=== PATIENT | female | born 1930 | race Caucasian/White ===

== ENCOUNTER 2016-06-12 00:40 | Inpatient (IN) | payer OTHER ==
[2016-06-12] VITALS (59 sets, daily range): BP systolic 82–143; BP diastolic 42–78
[~2016-06-12] VITALS: Ht 162.6 cm; Wt 88.0 kg
[~2016-06-12 00:40] MED LIST: ASPI-869 PO; DILT30TA35 PO
--- NOTE | 2016-06-12 00:45 | NUR ---
PT BIB RA WITH A C/O SOB. PT ARRIVED ON NRB MASK AND IS TRIPODING. PT IS LEANING TO THE RT. PT APPARENTLY FELL OUT OF BED. PT APPEARS TO BE CONFUSED. O2 SAT IS 87 ON RA AND DROPPING. PT WAS PLACED ON NC AT 4L AND O2 SAT DROPPED. PT PLACED BACK ON NRB MASK AND SLOWING SATURATED AT 96%. PT IS ON THE MONITOR AND CONTINOUS PULSE OX. PT IS CYANOTIC AROUND THE MOUTH UPON ARRIVAL. PT'S CAP REFILL IS SLUGGISH >3 SEC. PT KEEPS HER HEAD DOWN.
[2016-06-12] MEDS ORDERED: methylPREDNISolone SOD SUCC 125 MG/2ML VIAL ONE (00:53)
[2016-06-12] MEDS ORDERED: ALBUTEROL FS 2.5 MG/3 ML VIAL.NEB NEB ONE (01:00)
[2016-06-12] MEDS ORDERED: IPRATROPIUM NEB FS 0.5 MG/2.5 ML AMPUL.NEB NEB ONE (01:00)
[2016-06-12] MEDS ORDERED: methylPREDNISolone SOD SUCC 125 MG/2ML VIAL IV ONE (01:00)
[2016-06-12] MEDS ORDERED: FURO20TA4 PO (01:03)
[2016-06-12] MEDS ORDERED: METO25TA6 PO (01:03)
[2016-06-12] MEDS ORDERED: LOSA50TA21 PO (01:03)
[2016-06-12] MEDS ORDERED: WARF5TAB6 PO (01:03)
[2016-06-12] MEDS ORDERED: SULF1TAB48 PO (01:03)
[2016-06-12] MEDS ORDERED: DILT240C88 PO (01:03)
[2016-06-12] MEDS ORDERED: LEVO112T5 PO (01:03)
[2016-06-12 01:08] LABS: BASOPHILS # (AUTO) 0.1 /CMM (0.0-0.2); BASOPHILS % (AUTO) 0.6 % (0.0-2.0); HEMATOCRIT 45 % (33-45); HEMOGLOBIN 14.5 g/dL (11.5-14.8); LYMPHOCYTES # (AUTO) 0.6 /CMM (0.8-4.8); LYMPHOCYTES % (AUTO) 6.1 % (20.0-44.0); MEAN CORPUSCULAR HEMOGLOBIN 34 PG (26.0-33.0); MEAN CORPUSCULAR HGB CONC 32 g/dl (31.0-36.0); MEAN CORPUSCULAR VOLUME 104 fL (82-100); MONOCYTES # (AUTO) 0.7 /CMM (0.1-1.30); MONOCYTES % (AUTO) 7.1 % (2.0-12.0); NEUTROPHILS # (AUTO) 8.7 /CMM (1.8-8.9); NEUTROPHILS % (AUTO) 86.2 % (43.0-81.0); PLATELET COUNT (AUTO) 217 /CMM (150-450); RDW COEFFICIENT OF VARIATION 14.1 (11.5-15.0); RED BLOOD CELL COUNT(AUTO) 4.31 MIL/uL (4.0-5.2); WHITE BLOOD COUNT (AUTO) 10.1 K/uL (4.3-11.0)
[2016-06-12 01:09] LABS: ABG BASE EXCESS 0.1 mmol/L; ABG OXYGEN SATURATION 97.3 % (92.0-98.5); ABG PCO2 99.2 mmHg (35.0-45.0); ABG PH 7.137 (7.350-7.450); ABG PO2 132.4 mmHg (75.0-100.0); ABG TOTAL HEMOGLOBIN 15.4 G/dL (12.0-16.0); AaDO2 333.8 mmHg; COHb 1.2 % (0.5-1.5); MetHb 0.8 % (0.0-1.5); O2Hb 95.4 % (94.0-97.0); SITE, ABG Left Radial; VENT MODE, BG nrb
[2016-06-12] MEDS ORDERED: IV SET PRIMARY 1 EA INFUS.SET MC ONE (01:11)
[2016-06-12] MEDS ORDERED: IV SET PRIMARY PUMP SET 1 EA INFUS.SET MC ONE ×5 (01:11→22:29)
[2016-06-12] MEDS ORDERED: IV NS 0.9% 1,000 ML ONE ×2 (01:11→02:01)
[2016-06-12] MEDS ORDERED: PROPOFOL 100 ML IV ONE (01:11)
--- NOTE | 2016-06-12 01:19 | NUR ---
TIME OUT DONE BY DR. MCNULTY.
--- NOTE | 2016-06-12 01:20 | NUR ---
BAGGING IN PROGRESS BY RT
--- NOTE | 2016-06-12 01:20 | NUR ---
PT REC'D 20MG ETOMIDATE AND 200MG SUCC IVP
[2016-06-12 01:21] LABS: CALCIUM, SERUM 9.1 mg/dL (8.5-10.1); CREATININE 1.3 mg/dL (0.6-1.3)
[2016-06-12 01:22] LABS: LACTIC ACID 1.5 mmol/L (0.4-2.0); POTASSIUM 5.8 mmol/L (3.5-5.1)
--- NOTE | 2016-06-12 01:22 | NUR ---
PT INTUBATED. 7.5 ETT AND 22 @ THE LIP.
--- NOTE | 2016-06-12 01:23 | NUR ---
DR. ANDRES DID NOT WANT CARDIOVERSION WHEN ASKED.
--- NOTE | 2016-06-12 01:23 | NUR ---
PT IS IN AFIB. PT WAS DEFIBRILLATED AT 200J PER DR. MCNULTY.
--- NOTE | 2016-06-12 01:23 | NUR ---
BAGGING IN PROGRESS BY RT
--- NOTE | 2016-06-12 01:23 | NUR ---
PROPOFOL HELD PT IS HYPOTENSIVE
[2016-06-12 01:30] LABS: TROPONIN I 0.035 ng/mL (0.00-0.056)
[2016-06-12] MEDS ORDERED: SUCCINYLCHOLINE CHLORIDE 20 MG/ML VIAL IV ONE ×2 (01:30→08:00)
[2016-06-12] MEDS ORDERED: ETOMIDATE 2 MG/ML VIAL IV ONE ×2 (01:30→08:00)
[2016-06-12] MEDS ORDERED: LEVOFLOXACIN 750 MG /D5W 150ML PIGGYBACK IV ONE (01:30)
[2016-06-12] MEDS ORDERED: PROPOFOL 100 ML IV PRN (01:30)
[2016-06-12] MEDS ORDERED: IV NS 0.9% 1,000 ML BAG IV ONE ×2 (01:30→02:30)
--- NOTE | 2016-06-12 01:30 | NUR ---
LOONEY CATH INSERTED. APPROX 50 ML YELLOW URINE OUTPUT NOTED.
[2016-06-12 01:31] LABS: BILIRUBIN,DIRECT 0.1 mg/dL (0.0-0.2); BILIRUBIN,TOTAL 0.7 mg/dL (0.2-1.0)
[2016-06-12 01:32] LABS: ALBUMIN 3.6 g/dL (3.4-5.0); TOTAL PROTEIN, SERUM 7.6 g/dL (6.4-8.2)
[2016-06-12] MEDS ORDERED: IOHEXOL 240MG/ML 50 ML IV ONE (01:35)
[2016-06-12] MEDS ORDERED: IV NS 0.9% 250 ML IV ONE ×2 (01:35→19:27)
--- NOTE | 2016-06-12 01:38 | NUR ---
UNABLE TO INSERT NGT OR OG TUBE. AWARE.
[2016-06-12] MEDS ORDERED: FENTANYL PF 100MCG/2ML AMPUL ONE ×3 (01:46→04:21)
--- NOTE | 2016-06-12 01:46 | NUR ---
PT FIGHTING ETT. DR. MCNULTY IS AWARE AND NEW ORDERS GIVEN.
[2016-06-12] MEDS ORDERED: FENTANYL PF 100MCG/2ML AMPUL IV ONE ×2 (02:00→03:00)
--- NOTE | 2016-06-12 02:28 | NUR ---
PT LEFT FOR CT WITH RT, EMT AND MYSELF. PT IS ON THE MONITOR AND CONTINUOUS PULSE OX. PT REC'D MEDICATION ORDERED. BY DR. ANDRES.
--- NOTE | 2016-06-12 02:36 | NUR ---
PT IS IN CT.
--- NOTE | 2016-06-12 02:38 | NUR ---
CT WITH CONTRAST IN PROGRESS.
[2016-06-12] MEDS ORDERED: LEVOFLOXACIN 750 MG /D5W 150ML 150 ML IV ONE (03:05)
--- NOTE | 2016-06-12 03:13 | NUR ---
REPEAT ABG IN PROGRESS AT THE BEDSIDE.
[2016-06-12 03:17] LABS: ABG BASE EXCESS 0.9 mmol/L; ABG OXYGEN SATURATION 98.4 % (92.0-98.5); ABG PCO2 36.9 mmHg (35.0-45.0); ABG PH 7.444 (7.350-7.450); ABG PO2 131.2 mmHg (75.0-100.0); ABG TOTAL HEMOGLOBIN 13.5 G/dL (12.0-16.0); COHb 0.9 % (0.5-1.5); MetHb 0.4 % (0.0-1.5); O2Hb 97.1 % (94.0-97.0); PEEP,BG 0 cm H2O; SITE, ABG Right Radial; VENT MODE, BG AC 24 450 60% +0; VT, ABG 450 mL
--- NOTE | 2016-06-12 03:21 | NUR ---
RR DECREASED TO 20 POST ABG RESULTS ON VERBAL ORDER FROM DR MCNULTY Addendum: 06/12/16 at 0322 by KATYA FUNES RT Amended: Links added.
--- NOTE | 2016-06-12 03:21 | NUR ---
RT CHANGED THE RT ON THE VENT TO 20.
--- NOTE | 2016-06-12 03:49 | NUR ---
REPORT GIVEN TO TAO HYLTON
[2016-06-12] MEDS ORDERED: IV D5W 0 ML IV ONE (03:56)
[2016-06-12] MEDS ORDERED: AZITHROMYCIN 500 MG VIAL ONE (03:56)
[2016-06-12] MEDS ORDERED: IV D5W 250 ML IV ONE (03:59)
[2016-06-12] MEDS ORDERED: AZITHROMYCIN 500 MG in IV D5W 250 ML IV ONE (04:00)
[2016-06-12 04:17] LABS: APPEARANCE,URINE SL CLOUDY (CLEAR); BILIRUBIN,URINE 1+ (NEGATIVE); BLOOD, URINE 2+ Ery/uL (NEGATIVE); COLOR,URINE YELLOW (YELLOW); KETONES,URINE NEGATIVE (NEGATIVE); LEUKOCYTE ESTERASE ,URINE NEGATIVE (NEGATIVE); NITRITE, URINE NEGATIVE (NEGATIVE); PROTEIN,URINE 2+ mg/dl (NEGATIVE); UGLUCOSE NEGATIVE (NEGATIVE)
--- NOTE | 2016-06-12 04:18 | NUR ---
PROPOFOL HELD. PT'S HYPOTENSIVE. MD IS AWARE.
[2016-06-12] MEDS ORDERED: FENTANYL PF 100MCG/2ML AMPUL IV STA (04:25)
[2016-06-12 04:26] LABS: ADD URINE CULTURE NO; BACTERIA,URINE None seen /HPF (None Seen); HYALINE CASTS, URINE Few /LPF (None Seen); MUCUS,URINE Many /LPF (None Seen); SQUAMOUS EPITHELIAL CELL,UR Moderate /HPF (None Seen)
[2016-06-12] MEDS ORDERED: ACETAMINOPHEN 325 MG TABLET PO PRN (04:30)
[2016-06-12] MEDS ORDERED: ONDANSETRON HCL/PF 4 MG/2 ML VIAL IVP PRN (04:30)
[2016-06-12] MEDS ORDERED: ZOLPIDEM TARTRATE 5 MG TABLET PO PRN (04:30)
[2016-06-12] MEDS ORDERED: HYDROCODONE/APAP 5/325MG 1 EACH TABLET PO PRN (04:30)
[2016-06-12] MEDS ORDERED: MAGNESIUM HYDROXIDE 30 ML UDC PO PRN (04:30)
[2016-06-12] MEDS ORDERED: BUMETANIDE INJ 1 MG in IV NS 0.9% 40 ML IV ONE (04:30)
[2016-06-12] MEDS ORDERED: Z GUARD REMEDY 2 OZ OINT TP PRN (04:30)
[2016-06-12] MEDS: AZITHROMYCIN 500 MG in IV D5W 250 ML IV SCH (04:30)
[2016-06-12] MEDS ORDERED: MAG HYDROX/AL HYDROX/SIMETH 30 ML UDC PO PRN (04:30)
--- NOTE | 2016-06-12 04:30 | NUR ---
REC'D PT. VIA GISELL FROM [facility]. VERBAL REPORT GIVEN BY SARAH Salazar PT.IS VENTED & SEDATED ON DIPRIVAN GTT. AT 5 MCG/ KG MIN. PT. WAS GIVEN A BEDBATH UPON ADM. DOCUMENTATION DONE. LOONEY CATH TO GRAVITY. SKIN INTACT. THERE IS A GOLD WEDDING BAND ON LEFT HAND. ALL PULSES PALPABLE X 4 EXT./WEAK. AFEBRILE. BILAT.FEET ARE CYANOTIC & COOL TO TOUCH. PT.HAS BILAT. SOFT WRIST RESTRAINTS ON PER SAFETY PROTOCOL. EDEMATOUS BILAT. FEET. HEART MONITOR SHOWS SB/50'S & SBP'S IN THE LOW 90'S/89. CONT. POC.
--- NOTE | 2016-06-12 04:30 | NUR ---
PT TRANSPORTED TO ICU VIA GURNEY PER PROTOCOL.
[2016-06-12] MEDS: PROPOFOL 100 ML IV PRN ×3 (04:49→23:07)
[2016-06-12] MEDS ORDERED: BUMETANIDE INJ 0.25 MG/ML VIAL ONE (04:54)
[2016-06-12] MEDS ORDERED: IV NS 0.9% 50 ML IV ONE (04:55)
[2016-06-12] MEDS ORDERED: PANTOPRAZOLE 40 MG TABLET.DR PO SCH (07:30)
[2016-06-12 07:34] LABS: BASOPHILS % (AUTO) 0.1 % (0.0-2.0); HEMATOCRIT 41 % (33-45); HEMOGLOBIN 13.6 g/dL (11.5-14.8); LYMPHOCYTES # (AUTO) 0.4 /CMM (0.8-4.8); LYMPHOCYTES % (AUTO) 3.5 % (20.0-44.0); MEAN CORPUSCULAR HEMOGLOBIN 34 PG (26.0-33.0); MEAN CORPUSCULAR HGB CONC 33 g/dl (31.0-36.0); MEAN CORPUSCULAR VOLUME 102 fL (82-100); MONOCYTES # (AUTO) 0.3 /CMM (0.1-1.30); MONOCYTES % (AUTO) 3.3 % (2.0-12.0); NEUTROPHILS # (AUTO) 9.7 /CMM (1.8-8.9); NEUTROPHILS % (AUTO) 93.1 % (43.0-81.0); PLATELET COUNT (AUTO) 175 /CMM (150-450); RDW COEFFICIENT OF VARIATION 14.3 (11.5-15.0); RED BLOOD CELL COUNT(AUTO) 4.03 MIL/uL (4.0-5.2); WHITE BLOOD COUNT (AUTO) 10.4 K/uL (4.3-11.0)
[2016-06-12] MEDS ORDERED: ALBUTEROL FS 2.5 MG/3 ML VIAL.NEB NEB SCH (07:35)
[2016-06-12] MEDS: IPRATROPIUM NEB FS 0.5 MG/2.5 ML AMPUL.NEB NEB SCH ×5 (07:35→23:26)
[2016-06-12 07:39] LABS: ALBUMIN 2.9 g/dL (3.4-5.0); CALCIUM, SERUM 8.2 mg/dL (8.5-10.1); CREATININE 1.3 mg/dL (0.6-1.3); POTASSIUM 4.7 mmol/L (3.5-5.1); TOTAL PROTEIN, SERUM 6.2 g/dL (6.4-8.2)
--- NOTE | 2016-06-12 07:55 | NUR ---
PT RECEIVED ON [facility] VENT SETTINGS ORDERED. PT ORALLY INTUBATED ET-TUBE SECURED AT 25CM. B/S EQUAL. ALARMS SET AND AUDIBLE SMALL PALE YELLOW SPUTUM. AMBUBAG AT HEAD OF BED. Addendum: 06/12/16 at 1253 by ALBERTO CRSYTAL RT Amended: Links added.
--- NOTE | 2016-06-12 08:00 | NUR ---
ICU/RN INITIAL NOTES,AM RECEIVED REPORT FROM NIGHT NURSE. PT INTUBATED ETT 7.5 22 AT THE LIP. PT ON VENT SETTINGS ORDERED BY MD, NO ACUTE DISTRESS NOTED AT THIS TIME. PT SEDATED WITH DIPRIVAN, STILL ABLE TO OPEN EYES AND FOLLOW COMMANDS. PT ON TELE, SINUS WITH OCCASIONAL PVC'S. NO NG/OG TUBE IN PLACE, PER MD, WE ARE NOT TO PUT ONE IN. PIV PATENT AND INTACT, NO S/S OF INFECTION OR INFILTRATION NOTED. SKIN INTACT, PT WILL BE TURNED AND REPOSITIONED Q 2 HOURS AND NEEDED. ALL NEEDS WILL BE MET, SAFETY MEASURES TAKEN, BED IN LOW POSITION, SIDE RAILS UP,CALL LIGHT WITHIN REACH. BILATERAL WRIST RESTRAINTS IN PLACE, CIRCULATION CHECKS DONE PER PROTOCOL.
[2016-06-12] MEDS ORDERED: IV NS 0.9% 1,000 ML IV PRN (08:21)
[2016-06-12] MEDS ORDERED: AMIODARONE 900 MG in IV D5W 500 ML IV PRN (08:30)
--- NOTE | 2016-06-12 08:43 | NUR ---
WOUND CARE CONSULT: PT PRESENTS INTUBATED WITH INTACT SKIN. PT ON STU COMFORT GEL MATTRESS. PT TO BE TURNED AND REPOSITIONED EVERY 2 HRS PT CONDITION PERMITS, HEELS FLOATED. PT NOTED TO HAVE 4+ PITTING EDEMA TO BILATERAL FEET AND ANKLES WITH DUSKY COLOR. WILFRED SCORE IS 13. PT MOVES HER FEET AND LEGS AT TIMES. ALL SKIN PROTECTION MEASURES IN PLACE AND DISCUSSED WITH NURSING STAFF. MD IN AGREEMENT WITH PLAN OF CARE.
[2016-06-12 08:56] LABS: PROTHROMBIN TIME 68.3 SECS (9.5-12.7)
[2016-06-12] MEDS ORDERED: AMIODARONE 150 MG in IV D5W 100 ML IV ONE (09:00)
[2016-06-12] MEDS ORDERED: ENOXAPARIN SODIUM 30 MG/0.3 ML DISP.SYRIN SQ SCH (09:00)
--- NOTE | 2016-06-12 09:00 | NUR ---
ICU/RN: PT SEEN AND ASSESSED BY WOUND NURSE. NO INDICATION FOR LOW AIR LOSS MATTRESS AT THIS TIME PER WOUND RN. WILL CONTINUE TO TURN AND REPOSITION, CLOSELY ASSESS AND FOLLOW SKIN CARE PROTOCOL
[2016-06-12 09:09] LABS: INR 5.71 (0.87-1.13)
[2016-06-12] MEDS: PANTOPRAZOLE 40 MG VIAL IV SCH (09:18)
[2016-06-12] MEDS: methylPREDNISolone SOD SUCC 125 MG/2ML VIAL IV SCH (09:19)
[2016-06-12] MEDS: AMIODARONE 900 MG in IV D5W 482 ML IV PRN (09:40)
[2016-06-12] MEDS: IV NS 0.9% 1,000 ML IV PRN (09:41)
[2016-06-12 09:49] LABS: MAGNESIUM 1.9 mg/dL (1.8-2.4); PHOSPHORUS 2.3 mg/dL (2.5-4.9)
[2016-06-12 09:52] LABS: TROPONIN I 0.038 ng/mL (0.00-0.056)
[2016-06-12 09:59] LABS: THYROID STIMULATING HORMONE 2.5 uIU/mL (0.358-3.74)
[2016-06-12] MEDS: ALBUTEROL FS 2.5 MG/3 ML VIAL.NEB NEB SCH ×4 (11:50→23:26)
[2016-06-12] MEDS ORDERED: Sodium Phosphate 15 MMOL in IV D5W 250 ML IV ONE (13:30)
--- NOTE | 2016-06-12 15:00 | NUR ---
ICU/RN: PT SEEN BY GI MD. POSSIBLE EGD IN AM IF ABLE TO CORRECT INR AND AFTER EVALUATES PT.AND GIVES ORDERS. WILL FOLLOW THROUGH.
[2016-06-12] MEDS ORDERED: SECONDARY IV SET 1 EA INFUS.SET MC ONE (15:06)
--- NOTE | 2016-06-12 18:25 | NUR ---
ICU/RN ENDING NOTES,AM REPORT WILL BE ENDORSED TO NIGHT NURSE FOR CONTINUATION OF CARE. PT ON VENT SETTINGS ORDERED BY MD, NO ACUTE DISTRESS NOTED AT THIS TIME. PT CONTINUES TO BE ON AMIO DRIP PER PROTOCOL, DIPRIVAN INFUSING AT 15MCG FOR SEDATION. ON TELE, SINUS. AWAITING OR FFP TO BE PREPARED TO ADMIN TO PT, CONSENT IN CHART. WILL REEVALUATE INR AT 2100. ALL NEEDS MET. SAFETY MEASURES TAKEN, BED IN LOW POSITION, SIDE RAILS UP, CALL LIGHT WITHIN REACH. BILATERAL WRIST RESTRAINTS IN PLACE, CIRCULATION CHECKED PER PROTOCOL.
[2016-06-12] MEDS ORDERED: BLOOD IV SET 1 EA INFUS.SET MC ONE (19:26)
--- NOTE | 2016-06-12 19:48 | NUR ---
ICU/RN RECEIVED PT AWAKE ALERT,OX3.ON VENT VIA ORAL ETT FI02 40%,SAT.96%.ON DIPRIVAN DRIP AT 15MCG/KG/MIN.FOLLOWS COMMANDS.AMIODARONE DRIP AT 0.5MG/MIN.MONITOR SHOWS NSR RATE OF 70/MIN.DENIES PAIN OR DISCOMFORT.ANGIO#20 INSERTED W/OUT DIFFICULTY BY CN RN VIA RT.HAND.
--- NOTE | 2016-06-12 20:46 | NUR ---
ICU/RN I UNIT FFP HUNG.VS TAKEN
[2016-06-12 21:15] LABS: CREATININE, URINE < 13.0 MG/DL (30.0-125.0); URINE SODIUM, RANDOM 40 mmol/l (40-220)
[2016-06-12 21:25] LABS: OSMOLALITY,URINE 201 mOS/kg (340-1090)
--- NOTE | 2016-06-12 21:45 | NUR ---
ICU/RN DR.SAM ECHAVARRIA HERE TO SEE PT.EXPLAINED TO PT,RE:CONDITION OF PT.AND PLAN OF CARE.
--- NOTE | 2016-06-12 21:56 | NUR ---
PT RECEIVED INTUBATED WITH 7.5 ETT SECURED AT 23CM AT THE LIP NO DISTRESS NOTED PT IS AWAKE. PT TOLERATING VENT SETTINGS. B/S ANABELLA DM. SX'D FOR SML AMT OF PALE SECRETIONS. VENT ALARMS SET AND AUDIBLE. AMBU BAG AT [facility]. VENT PLUGGED INTO RED OUTLET. WILL CONTINUE TO MONITOR. Addendum: 06/12/16 at 2159 by VITO ZHANG RT Amended: Links added.
--- NOTE | 2016-06-12 22:21 | NUR ---
ICU/RN. DR SILVA CALLED TO INQUIRE RE:RESULT OF 2100 PT W/ INR.INFORMED M.D. THAT PT. IS STILL RECEIVING I UNIT FFP THAT WAS ORDERED AT 1400.ORDERS RECEIVED.PT TO RECEIVE 2 MORE UNITS OF FFP PRIOR TO CHECKING PT W/ INR.ORDER CARRIED OUT.
--- NOTE | 2016-06-12 23:00 | NUR ---
ICU/RN CARDIOSCOPE SHOWS A-FIB RATE OF 155-160.PT AWAKE ALERT AND SOMEWHAT AGITATED.DIPRIVAN DRIP INCREASED TO 30MCG/KG/MIN.CALMED W/IN 3MIN.CALL PLACED TO DR MON AT 231I PT REMAINS IN A-FIB RATE OF 155/MIN.MD RETURNED CALL RIGHT AWAY.CONDITION REPORT GIVEN,NO ORDERS RECEIVED.
[2016-06-13] VITALS (66 sets, daily range): BP systolic 75–150; BP diastolic 30–85
--- NOTE | 2016-06-13 | NUR ---
ICU/RN DR NG NOTIFIED OF PT'S HR OF 155-160 IN A-FIB, NO ORDERS GIVEN
[2016-06-13] MEDS ORDERED: BLOOD IV SET 1 EA INFUS.SET MC ONE (01:34)
[2016-06-13] MEDS ORDERED: IV NS 0.9% 250 ML IV ONE (02:00)
[2016-06-13] MEDS: IPRATROPIUM NEB FS 0.5 MG/2.5 ML AMPUL.NEB NEB SCH ×6 (03:02→23:03)
[2016-06-13] MEDS: ALBUTEROL FS 2.5 MG/3 ML VIAL.NEB NEB SCH ×6 (03:03→23:03)
--- NOTE | 2016-06-13 03:15 | NUR ---
ICU/RN REMAINS IN A-FIB W/RVR.ON AMIODARONE DRIP AT 0.5MG/MIN.ON 3RD UNIT OF FFP.
[2016-06-13] MEDS: AZITHROMYCIN 500 MG in IV D5W 250 ML IV SCH (04:35)
[2016-06-13 05:27] LABS: BASOPHILS % (AUTO) 0.2 % (0.0-2.0); HEMATOCRIT 38 % (33-45); HEMOGLOBIN 12.7 g/dL (11.5-14.8); INR 1.99 (0.87-1.13); LYMPHOCYTES # (AUTO) 0.2 /CMM (0.8-4.8); LYMPHOCYTES % (AUTO) 1.7 % (20.0-44.0); MEAN CORPUSCULAR HEMOGLOBIN 34 PG (26.0-33.0); MEAN CORPUSCULAR HGB CONC 33 g/dl (31.0-36.0); MEAN CORPUSCULAR VOLUME 102 fL (82-100); MONOCYTES # (AUTO) 0.8 /CMM (0.1-1.30); MONOCYTES % (AUTO) 6.7 % (2.0-12.0); NEUTROPHILS # (AUTO) 11.5 /CMM (1.8-8.9); NEUTROPHILS % (AUTO) 91.4 % (43.0-81.0); PLATELET COUNT (AUTO) 177 /CMM (150-450); PROTHROMBIN TIME 22.3 SECS (9.5-12.7); RDW COEFFICIENT OF VARIATION 14.3 (11.5-15.0); RED BLOOD CELL COUNT(AUTO) 3.72 MIL/uL (4.0-5.2); WHITE BLOOD COUNT (AUTO) 12.6 K/uL (4.3-11.0)
[2016-06-13 05:33] LABS: CALCIUM, SERUM 8.6 mg/dL (8.5-10.1); CREATININE 1.4 mg/dL (0.6-1.3); MAGNESIUM 1.7 mg/dL (1.8-2.4); PHOSPHORUS 3.9 mg/dL (2.5-4.9); POTASSIUM 3.6 mmol/L (3.5-5.1)
[2016-06-13 05:35] LABS: TROPONIN I 0.095 ng/mL (0.00-0.056)
[2016-06-13] MEDS: PROPOFOL 100 ML IV PRN ×4 (05:59→20:41)
--- NOTE | 2016-06-13 06:00 | NUR ---
ICU/RN BERENICE TSANG IN TO SEE PT.PT REMAINS IN A-FIB W/RVR RATE 140'S.AT 0611 DR NG CARDIOVERTED PT AT 200 JOULES W/ CONVERSION TO NSR.12 LEAD EKG DONE PRIOR TO ABOVE PROCEDURE,AND DIPRIVAN INCREASED TO 30 MCG/KG/MIN PT WAS AWAKE.DIPRIVAN DECREASED TO 20MCG/KG/MIN AFTER 10MINUTES.
[2016-06-13] MEDS ORDERED: DIGOXIN INJ 0.5 MG/2 ML AMPUL ONE (06:20)
[2016-06-13] MEDS ORDERED: Magnesium 1GM/D5W 100ML PREMIX 100 ML IV ONE (06:24)
[2016-06-13] MEDS ORDERED: IV SET PRIMARY PUMP SET 1 EA INFUS.SET MC ONE ×3 (06:24→19:18)
[2016-06-13] MEDS: Magnesium 1GM/D5W 100ML PREMIX 100 ML IV SCH ×2 (06:29→07:44)
[2016-06-13] MEDS: DIGOXIN INJ 0.5 MG/2 ML AMPUL IV SCH ×3 (06:33→17:26)
--- NOTE | 2016-06-13 06:33 | NUR ---
ICU/RN. PT.REMAINS IN NSR.DIGOXIN 0.25IVP GIVEN ORDERED BY ,PT TO RECEIVE 2MORE DOSES Q6HRS. AND 2GMS OF MAGNESIUM SULFATE IVPB.
[2016-06-13] MEDS: LEVOTHYROXINE SODIUM 112 MCG TABLET PO SCH (07:45)
--- NOTE | 2016-06-13 07:49 | NUR ---
ICU/RN INITIAL NOTES,AM RECEIVED REPORT FROM NIGHT NURSE. PT INTUBATED ETT 7.5 22 AT THE LIP. PT ON VENT SETTINGS ORDERED BY MD, NO ACUTE DISTRESS NOTED AT THIS TIME. PT SEDATED WITH DIPRIVAN 20 MCG. PT ON TELE, SINUS. NO NG/OG TUBE IN PLACE, PER MD, WE ARE NOT TO PUT ONE IN. PT WILL POSSIBLY GO FOR EGD THIS AFTERNOON. PIV PATENT AND INTACT, NO S/S OF INFECTION OR INFILTRATION NOTED. SKIN INTACT, PT WILL BE TURNED AND REPOSITIONED Q 2 HOURS AND NEEDED. ALL NEEDS WILL BE MET, SAFETY MEASURES TAKEN, BED IN LOW POSITION, SIDE RAILS UP,CALL LIGHT WITHIN REACH. BILATERAL WRIST RESTRAINTS IN PLACE, CIRCULATION CHECKS DONE PER PROTOCOL. PER MD, ONE ADDITIONAL FFP WILL BE INFUSED THIS AM. WILL CONTINUE CARE
--- NOTE | 2016-06-13 09:26 | NUR ---
ICU/RN: FFP TRANSFUSION STARTED AT 0900, PT TOLERATING WELL, NO S/S OF ADVERSE REACTIONS NOTED, VSS, PT CONTINUES TO STAY AFEBRILE. WILL CLOSELY MONITOR AND ASSESS
--- NOTE | 2016-06-13 09:27 | NUR ---
RT PT REC'D INTUBATED VIA ETT 7.5 ETT AT 23CM AT THE LIP. B/S CLEAR/DIM. SX'D SCANT AMT OF WHITE SECRETIONS. VENT SETTINGS PER DR. JERONIMO. VENT PLUGGED INTO RED OUTLET. ALARMS CHECKED AND AUDIBLE PER POLICY. NO RESP. DISTRESS NOTED AT THIS TIME. WILL CONTINUE TO MONITOR PT.
[2016-06-13] MEDS: PANTOPRAZOLE 40 MG VIAL IV SCH (09:42)
[2016-06-13] MEDS: methylPREDNISolone SOD SUCC 125 MG/2ML VIAL IV SCH (09:42)
[2016-06-13] MEDS: AMIODARONE 900 MG in IV D5W 482 ML IV PRN (11:17)
[2016-06-13] MEDS ORDERED: DIGOXIN INJ 0.5 MG/2 ML AMPUL IV SCH (12:00)
[2016-06-13 12:45] LABS: INR 1.81 (0.87-1.13); PROTHROMBIN TIME 20.1 SECS (9.5-12.7)
--- NOTE | 2016-06-13 15:11 | NUR ---
RT WAS NOT ABLE TO GIVE TX DUE TO CODE BLUE FOR ANOTHER PATIENT. WILL GIVE NEXT SCHEDULED DOSE.
[2016-06-13] MEDS: IV NS 0.9% 1,000 ML IV PRN (15:40)
[2016-06-13] MEDS ORDERED: ROCURONIUM BROMIDE 50 MG/5 ML ONE (16:13)
[2016-06-13] MEDS ORDERED: ANESTHESIA TRAY IN PYXIS 1 EA TRAY MC ONE (16:52)
--- NOTE | 2016-06-13 19:42 | NUR ---
ICU/RN ENDING NOTES,AM REPORT WILL BE ENDORSED TO NIGHT NURSE FOR CONTINUATION OF CARE. PT ON VENT SETTINGS ORDERED BY MD, NO ACUTE DISTRESS NOTED AT THIS TIME. PT CONTINUES TO BE ON AMIO DRIP PER PROTOCOL, DIPRIVAN INFUSING AT 45MCG FOR SEDATION. ON TELE, SINUS.ALL NEEDS MET. SAFETY MEASURES TAKEN, BED IN LOW POSITION, SIDE RAILS UP, CALL LIGHT WITHIN REACH. BILATERAL WRIST RESTRAINTS IN PLACE, CIRCULATION CHECKED PER PROTOCOL. EGD DONE. POSSIBLE WEANING TOMORROW
--- NOTE | 2016-06-13 19:57 | NUR ---
SUPERVISOR METAL HANGING: RECEIVED PT S/P EGD DONE TODAY BY DR CRAWFORD, PT IS INTUBATED ETT 7.5 22 CM AT THE LIP LINE. CURRENT VENT SETTINGS VERIFIED, PT TOLERATING WELL. NO ACUTE DISTRESS, SEDATED WITH DIPRIVAN AT 45 MCG/KG/MIN, SINUS RHYTHM ON MONITOR, S/P CARDIOVERSION THIS MORNING DUE TO UNCONTROLLED AFIB SUCCESSFULLY CONVERTED TO NSR, KEEP CONTINUE ON AMIODARONE DRIP RUNNING AT 0.5 MG/MIN PER PREVIOUS NURSE. RIGHT HAND PIV PATENT AND INTACT, NO S/S OF INFECTION OR INFILTRATION NOTED. SKIN IS INTACT, PT WILL BE TURNED AND REPOSITIONED Q 2 HOURS. ALL NEEDS WILL BE MET, SAFETY MEASURES TAKEN, BED IN LOW POSITION, SIDE RAILS UP,CALL LIGHT WITHIN REACH. BILATERAL SOFT WRIST RESTRAINTS IN PLACE FOR SAFETY REASON TO PREVENT SELF EXTUBATION. CIRCULATION CHECKS DONE PER PROTOCOL, FAMILY AT BEDSIDE CONDITION UPDATED. ONGOING MONITORING
--- NOTE | 2016-06-13 22:46 | NUR ---
PT RECEIVED INTUBATED WITH 7.5 ETT SECURED AT 23CM AT THE LIP NO DISTRESS NOTED PT IS AWAKE. PT TOLERATING VENT SETTINGS. B/S ANABELLA DM. SX'D FOR SML AMT OF PALE SECRETIONS. VENT ALARMS SET AND AUDIBLE. AMBU BAG AT [facility]. VENT PLUGGED INTO RED OUTLET. WILL CONTINUE TO MONITOR. Addendum: 06/13/16 at 1767 by VITO ZHANG RT Amended: Links added.
[2016-06-14] VITALS (34 sets, daily range): BP systolic 88–131; BP diastolic 43–88
[2016-06-14] MEDS: PROPOFOL 100 ML IV PRN ×3 (01:15→11:13)
[2016-06-14] MEDS: IPRATROPIUM NEB FS 0.5 MG/2.5 ML AMPUL.NEB NEB SCH ×6 (03:17→23:22)
[2016-06-14] MEDS: ALBUTEROL FS 2.5 MG/3 ML VIAL.NEB NEB SCH ×6 (03:17→23:22)
--- NOTE | 2016-06-14 03:46 | NUR ---
RN/ICU- PT. CONVERTED INTO RAPID ATRIAL FIBRILLATION W/ HR-140'S AT 0309, DR. MON NOTIFIED BY PHONE W/ NO NEW ORDER.
--- NOTE | 2016-06-14 04:13 | NUR ---
DIGITAL MARKETING CONSULTANT; AT 309 RHYTHM CONVERTED TO AFIB UNCONTROLLED OF 120-130, NOTIFIED OBIEE CONSULTANT DR MON SAID" WAIT FOR DR NG ROUTE AIDE". PT HAD SAME EPISODES OCCURRED YESTERDAY THEN CARDIOVERSION DONE BY BERENICE RHYTHM CONVERTED TO SINUS RHYTHM. WILL WAIT FRO DR NG.
[2016-06-14] MEDS: AZITHROMYCIN 500 MG in IV D5W 250 ML IV SCH (04:33)
[2016-06-14 05:18] LABS: BASOPHILS % (AUTO) 0.1 % (0.0-2.0); HEMATOCRIT 40 % (33-45); HEMOGLOBIN 13.4 g/dL (11.5-14.8); LYMPHOCYTES # (AUTO) 0.2 /CMM (0.8-4.8); LYMPHOCYTES % (AUTO) 1.8 % (20.0-44.0); MEAN CORPUSCULAR HEMOGLOBIN 34 PG (26.0-33.0); MEAN CORPUSCULAR HGB CONC 33 g/dl (31.0-36.0); MEAN CORPUSCULAR VOLUME 103 fL (82-100); MONOCYTES # (AUTO) 0.6 /CMM (0.1-1.30); MONOCYTES % (AUTO) 4.7 % (2.0-12.0); NEUTROPHILS # (AUTO) 11.2 /CMM (1.8-8.9); NEUTROPHILS % (AUTO) 93.4 % (43.0-81.0); PLATELET COUNT (AUTO) 170 /CMM (150-450); RDW COEFFICIENT OF VARIATION 14.7 (11.5-15.0); RED BLOOD CELL COUNT(AUTO) 3.94 MIL/uL (4.0-5.2)
[2016-06-14 05:26] LABS: CALCIUM, SERUM 8.5 mg/dL (8.5-10.1); CREATININE 1.1 mg/dL (0.6-1.3); POTASSIUM 3.7 mmol/L (3.5-5.1)
--- NOTE | 2016-06-14 06:20 | NUR ---
OFFLINE CUTTER; SEEN AND EXAMINED BY DR NG MADE AWARE ABOUT AFIB, DR NG SAID WANTS TO TALK TO DR TENZIN LAMB TO ASK IF OK TO INSERT NG TUBE BECAUSE PT NEEDS AMIODARONE PO DOSES.TO GET . WILL ENDORSE TO NEXT SHIFT.
[2016-06-14] MEDS ORDERED: DIGOXIN INJ 0.5 MG/2 ML AMPUL IV SCH (07:00)
--- NOTE | 2016-06-14 07:20 | NUR ---
ELECTRICAL TECH/PROJECT MANAGER: BEDSIDE REPORT GIVEN TO ARPI/RN, ENDORSED REGARDING CALL GI TO ASK IF ITS OK TO INSERT NG TUBE.
[2016-06-14] MEDS: LEVOTHYROXINE SODIUM 112 MCG TABLET PO SCH (07:30)
--- NOTE | 2016-06-14 07:30 | NUR ---
INITIAL HEAVY EQUIPMENT RENTAL ASSOCIATE NOTE RCVD PT SEDATED ON DIPRIVAN, AFIB ON TELE HR 132. TOLERATING ORDERED VENT SETTINGS ETT 7.5 [address]IP[address] DRAINING CLEAR, YELLOW URINE. TWO RIGHT WRIST #20 C/D/I/PATENT. NO S/O INFILTRATION OR PHLEBITIS OBSERVED UPON FLUSHING. WILL CONTINUE TO MONITOR PT FOR SAFETY AND COMFORT. -PT WAS REPOSITIONED. CALL LIGHT WITHIN REACH. BED IN LOW AND LOCKED POSITION.
[2016-06-14] MEDS: PANTOPRAZOLE 40 MG VIAL IV SCH (08:26)
[2016-06-14] MEDS: methylPREDNISolone SOD SUCC 125 MG/2ML VIAL IV SCH (08:27)
[2016-06-14] MEDS ORDERED: DC PROPOFOL WHEN EXTUBATED XX PRN ×2 (11:00→15:30)
[2016-06-14] MEDS: DIGOXIN INJ 0.5 MG/2 ML AMPUL IV SCH (13:28)
--- NOTE | 2016-06-14 14:35 | NUR ---
ANALYSIS ANALYST NOTE TITRATING DIPRIVAN DOWN TO ATTEMPT VENT WEANING PER DR. NAVARRO'S ORDER. PT CONTINUES TO BE SEDATED AT 20MCG. WILL CONTINUE TO MONITOR PT. RN AT BEDSIDE. BILATERAL SOFT WRIST RESTRAINTS IN PLACE FOR SAFETY.
--- NOTE | 2016-06-14 14:59 | NUR ---
LABORER HIDE HOUSE NOTE PT OFF SEDATION ABLE TO FOLLOW COMMANDS. ON SIMV MODE AT THIS TIME. WILL CONTINUE TO MONITOR.
[2016-06-14 15:23] LABS: ABG BASE EXCESS 6.9 mmol/L; ABG PCO2 39.3 mmHg (35.0-45.0); ABG PH 7.507 (7.350-7.450); ABG PO2 81.1 mmHg (75.0-100.0); ABG TOTAL HEMOGLOBIN 14.9 G/dL (12.0-16.0); AaDO2 231.2 mmHg; MetHb 0.5 % (0.0-1.5); O2Hb 94.6 % (94.0-97.0); PEEP,BG 5 cm H2O; SITE, ABG Right Radial; VT, ABG 450 mL
--- NOTE | 2016-06-14 15:35 | NUR ---
RT PER DR NAVARRO PATIENT WEANED AND EXTUBATED. PLACED ON 5L N/C HEDY WELL. PATIENT AWAKE AND ALERT WITH ZERO SOB
[2016-06-14] MEDS ORDERED: IV SET PRIMARY PUMP SET 1 EA INFUS.SET MC ONE (15:39)
--- NOTE | 2016-06-14 16:00 | NUR ---
NUT SHELLER MACHINE OPERATOR NOTE PT EXTUBATED AT 1535 ON 5L NC TOLERATING WELL. NO S/O DISTRESS OR C/O PAIN VERBALIZED. DR. SILVA AT BEDSIDE INFORMED THAT PT CONTINUES TO BE ON UNCONTROLLED AFIB, MD RECOMMENDED TO RESUME AMIO DRIP PER PROTOCOL FOR 24 HRS. WILL CONTINUE TO MONITOR.
[2016-06-14] MEDS: AMIODARONE 900 MG in IV D5W 482 ML IV PRN (16:05)
--- NOTE | 2016-06-14 18:14 | NUR ---
ENDING MOLD CLAMPER NOTE PT AWAKE AND ALERT, SHOWING NO S/O DISTRESS OR C/O PAIN. PT CONTINUES TO TOLERATE O2 VIA NC. UNCONTROLLED AFIB ON TELE HR 124 CONTINUES ON AMIO DRIP. LOONEY DRAINING YELLOW URINE. RIGHT WRIST #22 AND RIGHT HAND #20 C/D/I/PATENT. NO S/O INFILTRATION OR PHLEBITIS OBSERVED UPON FLUSHING. WILL CONTINUE TO MONITOR PT FOR SAFETY AND COMFORT. CALL LIGHT WITHIN REACH. BED IN LOW AND LOCKED POSITION. BED ALARM ON. PT'S CARE WILL BE ENDORSED TO AUTO DAMAGE ADJUSTER RN FOR CONTINUITY OF CARE.
--- NOTE | 2016-06-14 19:30 | NUR ---
SALES REPRESENTATIVE ELECTRIC SERVICE PT C/O SOB AND DIZZINESS. PT IS TACHYPNEIC AND RESTLESS. HOB ELEVATED . PT ON VENTI MASK 12L , INCREASED O2 TO 15L . STAT ABG ORDERED . RT INFORMED.
--- NOTE | 2016-06-14 19:54 | NUR ---
SCHOOL OCCUPATIONAL THERAPIST ABG RESULTS RECEIVED. PH [phone], CO2 [phone] , PO2 [phone] , HCO3 [phone] . CALLED ON-CALL MD DR MON THROUGH [employer] . MESSAGE LEFT REGARDING ABNORMAL ABGS . AWAITING CALL BACK . RT AT BEDSIDE GIVING BREATHING TREATMENT.
--- NOTE | 2016-06-14 20:00 | NUR ---
SENIOR IT ASSISTANT PT IS STILL C/O SOB AFTER BREATHING TREATMENT . STILL WAITING FOR CALL BACK FROM DR MON. CALLED DR MON AGAIN .MESSAGE LEFT . GODDAUGHTER CALLED AND UPDATE GIVEN.
--- NOTE | 2016-06-14 20:37 | NUR ---
UTILIZATION MANAGEMENT MANAGER ABG RESULTS READ TO DR MON. GAVE ORDER FOR PRN RESCUE BIPAP, IF NEEDED FOR THE PATIENTS COMFORT OR FOR RESP DISTRESS. PT IS NO LONGER C/O SOB AT THIS TIME, WILL CONT TO MONITOR PT FOR NEED OF BIPAP.
[2016-06-14 20:56] LABS: ABG BASE EXCESS 6.6 mmol/L; ABG OXYGEN SATURATION 92.7 % (92.0-98.5); ABG PCO2 54.9 mmHg (35.0-45.0); ABG PH 7.399 (7.350-7.450); ABG TOTAL HEMOGLOBIN 15.1 G/dL (12.0-16.0); AaDO2 152.1 mmHg; MetHb 0.7 % (0.0-1.5); O2Hb 91.1 % (94.0-97.0); SITE, ABG Right Radial; VENT MODE, BG VENTI MASK 40%
--- NOTE | 2016-06-14 22:00 | NUR ---
STAPLER HAND ORAL CARE DONE. NO RESPIRATORY DISTRESS NOTED. PT IS CALM AND ALERT. DENIES ANY DIZZINESS OR SOB. WILL CONT TO MONITOR.
--- NOTE | 2016-06-14 23:33 | NUR ---
SECRETARY PT IS CALM AND ALERT . NO SIGNS OF RESPIRATORY DISTRESS NOTED. ORAL CARE DONE AND PLACED PT ON SIMPLE MASK 6L . WILL MONITOR RESPIRATORY STATUS
--- NOTE | 2016-06-14 23:37 | NUR ---
VACUUM WORKER PT TOLERATING SIMPLE MASK SATURATING 94% . NO RESP DISTRESS NOTED. WILL CONT TO MONITOR.
[2016-06-15] VITALS (34 sets, daily range): BP systolic 96–134; BP diastolic 44–83
--- NOTE | 2016-06-15 04:00 | NUR ---
ICU NR PLACED PT ON 2L VIA NC. TOLERATED WELL NO SOB NOTED. BED BATH TOLERATED WELL. SLIGHT REDNESS NOTED UNDER BOTH BREAST FOLDS , SKIN INTACT BUT PINK . PICTURE TAKEN AND PLACED IN CHART. WILL CONT TO MONITOR.
[2016-06-15] MEDS: IPRATROPIUM NEB FS 0.5 MG/2.5 ML AMPUL.NEB NEB SCH ×6 (04:07→23:48)
[2016-06-15] MEDS: ALBUTEROL FS 2.5 MG/3 ML VIAL.NEB NEB SCH ×6 (04:07→23:48)
[2016-06-15 04:35] LABS: BASOPHILS % (AUTO) 0.1 % (0.0-2.0); HEMATOCRIT 43 % (33-45); HEMOGLOBIN 14.2 g/dL (11.5-14.8); LYMPHOCYTES # (AUTO) 0.2 /CMM (0.8-4.8); LYMPHOCYTES % (AUTO) 1.4 % (20.0-44.0); MEAN CORPUSCULAR HEMOGLOBIN 34 PG (26.0-33.0); MEAN CORPUSCULAR HGB CONC 33 g/dl (31.0-36.0); MEAN CORPUSCULAR VOLUME 104 fL (82-100); MONOCYTES % (AUTO) 7.2 % (2.0-12.0); NEUTROPHILS % (AUTO) 91.3 % (43.0-81.0); PLATELET COUNT (AUTO) 166 /CMM (150-450); RDW COEFFICIENT OF VARIATION 15.5 (11.5-15.0); RED BLOOD CELL COUNT(AUTO) 4.16 MIL/uL (4.0-5.2); WHITE BLOOD COUNT (AUTO) 13.1 K/uL (4.3-11.0)
[2016-06-15] MEDS: AZITHROMYCIN 500 MG in IV D5W 250 ML IV SCH (04:42)
[2016-06-15 04:50] LABS: CALCIUM, SERUM 8.3 mg/dL (8.5-10.1); CREATININE 1.2 mg/dL (0.6-1.3); POTASSIUM 4.4 mmol/L (3.5-5.1)
[2016-06-15] MEDS: LEVOTHYROXINE SODIUM 112 MCG TABLET PO SCH (07:30)
--- NOTE | 2016-06-15 07:37 | NUR ---
INITIAL TRAINING TECHNICIAN NOTE RCVD PT AWAKE AND ALERT SHOWING NO S/O DISTRESS OR C/O PAIN. AFIB ON TELE HR 122, TOLERATING O2 VIA NC. LOONEY IN PLACE DRAINING YELLOW URINE. RIGHT AC AND RIGHT FA #20 C/D/I/PATENT. NO S/O INFILTRATION OR PHLEBITIS OBSERVED UPON FLUSHING. WILL CONTINUE TO MONITOR PT FOR SAFETY AND COMFORT. CALL LIGHT WITHIN REACH. BED IN LOW AND LOCKED POSITION.
[2016-06-15] MEDS: PANTOPRAZOLE 40 MG VIAL IV SCH (08:01)
[2016-06-15] MEDS: methylPREDNISolone SOD SUCC 125 MG/2ML VIAL IV SCH (08:01)
[2016-06-15 08:06] LABS: MAGNESIUM 2.3 mg/dL (1.8-2.4); PHOSPHORUS 5.6 mg/dL (2.5-4.9)
[2016-06-15 08:40] LABS: ABG BASE EXCESS 6.8 mmol/L; ABG OXYGEN SATURATION 89.7 % (92.0-98.5); ABG PCO2 52.8 mmHg (35.0-45.0); ABG PH 7.413 (7.350-7.450); ABG PO2 58.5 mmHg (75.0-100.0); ABG TOTAL HEMOGLOBIN 14.7 G/dL (12.0-16.0); COHb 1.5 % (0.5-1.5); MetHb 0.6 % (0.0-1.5); O2Hb 87.8 % (94.0-97.0); SITE, ABG Left Radial; VENT MODE, BG Nasal Cannula
--- NOTE | 2016-06-15 10:23 | NUR ---
SAFETY COMPANION NOTE PT'S FAMILY AT BEDSIDE UPDATED ON PT'S CONDITION. WILL CONTINUE MONITORING.
[2016-06-15] MEDS: DIGOXIN INJ 0.5 MG/2 ML AMPUL IV SCH (13:51)
[2016-06-15] MEDS: AMIODARONE HCL 200 MG TABLET PO SCH (16:35)
--- NOTE | 2016-06-15 18:50 | NUR ---
ENDING PERFORMANCE IMPROVEMENT MANAGER NOTE PT AWAKE AND ALERT SHOWING NO S/O DISTRESS, CONTINUES TO BE AFIB ON TELE. LOONEY IN PLACE DRAINING YELLOW URINE. IV ACCESSES C/D/I/PATENT. NO S/O INFILTRATION OR PHLEBITIS OBSERVED UPON FLUSHING. TOLERATING PUREED DIET WELL. WILL CONTINUE TO MONITOR PT FOR SAFETY AND COMFORT. CALL LIGHT WITHIN REACH. BED IN LOW AND LOCKED POSITION. PT'S CARE WILL BE ENDORSED TO CHURCH SUPERVISOR RN FOR CONTINUITY OF CARE.
--- NOTE | 2016-06-15 19:39 | NUR ---
SHINGLE SHEARING MACHINE OPERATOR.INITIAL ASSESSMENT RECEIVED THE PT REST ON THE BED,AWAKE, ALERT,FOLLOW COMMANDS.CORK INSULATION INSTALLER SHOWING A FIB.OXYGEN 2L VIA NASAL CANNULA.SAT 98 %.IV RT AC 20G, RT HAND 20G.SALINE LOCK.HOB ELEVATED. TURN AND REPOSITION Q2H.WILL CONTINUE TO MONITOR VITALS.
[2016-06-16] VITALS (25 sets, daily range): BP systolic 93–124; BP diastolic 28–76
--- NOTE | 2016-06-16 03:27 | NUR ---
SYSTEMS DESIGN ENGINEER. AM CARE, ORAL CARE, BED BATH GIVEN. LINEN CHANGED. REMAINING SAME OXYGEN 2LVIA NASAL CANNULA.SAT 96%. FC PATENT.URINE DRAINING. AFEBRILE. TURN AND REPOSITION Q2H.WILL CONTINUE TO MONITOR VITALS.
[2016-06-16] MEDS: ALBUTEROL FS 2.5 MG/3 ML VIAL.NEB NEB SCH ×6 (03:28→23:37)
[2016-06-16] MEDS: IPRATROPIUM NEB FS 0.5 MG/2.5 ML AMPUL.NEB NEB SCH ×6 (03:29→23:37)
[2016-06-16] MEDS: AZITHROMYCIN 500 MG in IV D5W 250 ML IV SCH (04:30)
[2016-06-16 04:43] LABS: BASOPHILS % (AUTO) 0.2 % (0.0-2.0); HEMATOCRIT 45 % (33-45); HEMOGLOBIN 14.4 g/dL (11.5-14.8); LYMPHOCYTES # (AUTO) 0.6 /CMM (0.8-4.8); LYMPHOCYTES % (AUTO) 5.1 % (20.0-44.0); MEAN CORPUSCULAR HEMOGLOBIN 34 PG (26.0-33.0); MEAN CORPUSCULAR HGB CONC 32 g/dl (31.0-36.0); MEAN CORPUSCULAR VOLUME 106 fL (82-100); MONOCYTES # (AUTO) 0.9 /CMM (0.1-1.30); MONOCYTES % (AUTO) 7.9 % (2.0-12.0); NEUTROPHILS # (AUTO) 9.9 /CMM (1.8-8.9); NEUTROPHILS % (AUTO) 86.8 % (43.0-81.0); PLATELET COUNT (AUTO) 149 /CMM (150-450); RDW COEFFICIENT OF VARIATION 15.2 (11.5-15.0); RED BLOOD CELL COUNT(AUTO) 4.24 MIL/uL (4.0-5.2); WHITE BLOOD COUNT (AUTO) 11.4 K/uL (4.3-11.0)
[2016-06-16 05:02] LABS: CALCIUM, SERUM 8.1 mg/dL (8.5-10.1); CREATININE 1.1 mg/dL (0.6-1.3); POTASSIUM 4.7 mmol/L (3.5-5.1)
[2016-06-16 05:58] LABS: LYMPHOCYTES % (MANUAL) 2 % (16-48); MONOCYTES % (MANUAL) 10 % (0-11.0); NEUTROPHILS % (MANUAL) 88 (42-76)
--- NOTE | 2016-06-16 07:15 | NUR ---
PROCESSING ENGINEER NOTES RECEIVED PATIENT AOX4 , NOT IN ACUTE DISTRESS , DENIES SOB AND DISCOMFORT AT THIS TIME , SPO2 OF 92% VIA 2LPM NC , UPRIGHT POSITION DUE TO LARGE HIATAL HERNIA, AFIB 89 ON BEDSIDE MONITOR , FC DRAINING WELL VIA GRAVITY WITH CLEAR YELLOW URINE , IV OF R AC # 20 AND R WRIST # 20 PATENT AND INTACT SL , ALL NEEDS ATTENDED , BED ON LOW AND LOCKED POSITION , SIDE RAILS X2 ,CALL LIGHT WITHIN REACH , WILL CONTINUE TO MONITOR
[2016-06-16] MEDS: LEVOTHYROXINE SODIUM 112 MCG TABLET PO SCH (08:58)
[2016-06-16] MEDS: AMIODARONE HCL 200 MG TABLET PO SCH ×3 (08:58→17:38)
[2016-06-16] MEDS: methylPREDNISolone SOD SUCC 125 MG/2ML VIAL IV SCH (08:58)
[2016-06-16] MEDS: PANTOPRAZOLE 40 MG VIAL IV SCH (08:58)
[2016-06-16] MEDS ORDERED: acetaZOLAMIDE SODIUM 500 MG/VIAL VIAL IV ONE (09:00)
--- NOTE | 2016-06-16 09:30 | NUR ---
ENGRAVER AUTOMATIC NOTES CALLED PHARMACY , SPOKE WITH MICHAEL NOTIFIED DR NG ORDERED DIAMOX IVP , PHARMACIST AWARE , WILL DELIVER MEDICATIONS TO ICU ,
[2016-06-16] MEDS: DIGOXIN INJ 0.5 MG/2 ML AMPUL IV SCH (13:16)
--- NOTE | 2016-06-16 17:00 | NUR ---
PARALEGAL INSTRUCTOR NOTES DR LEWIS NOTIFIED REGARDING PT CHEST XRAY , ON 4LPM NC SPO2 OF 87-92% , PLACED ON BIPAP @ 1200 - 1500 , AND PLACED PT BACK TO 4LPM NC SPO2 OF %94 , PER MD PUT PT ON NOCTURNAL BIPAP
--- NOTE | 2016-06-16 19:48 | NUR ---
PROGRAM DIRECTOR. INITIAL ASSESSMENT. RECEIVED THE PT REST ON THE BED. AWAKE, ALERT, FOLLOW COMMANDS. LETHARGIC. GLOBAL COMPENSATION DIRECTOR SHOWING AFIB. OXYGEN 2L VIA NASAL CANNULA. SAT 98 %. IV RT HAND SALINE LOCK. FC PATENT. TURN AND REPOSITION Q2H. WILL CONTINUE TO MONITOR VITALS.
--- NOTE | 2016-06-16 23:26 | NUR ---
pt received on bipap via face mask, settings as charted ambu bag at bedside alarms set and audible. disconnect alarms checked breath sounds equal bilateral coarse pt receiving albuterol and atrovent a4 Addendum: 06/16/16 at 2327 by KATYA FUNES RT Amended: Links added. Addendum: 06/16/16 at 2329 by KATYA FUNES RT pt placed on bipap, per md order bipap for sob, due to increased rr and decreased spo2
[2016-06-17] VITALS (29 sets, daily range): BP systolic 101–133; BP diastolic 52–81
[2016-06-17] MEDS: AZITHROMYCIN 500 MG in IV D5W 250 ML IV SCH (03:47)
[2016-06-17] MEDS: IPRATROPIUM NEB FS 0.5 MG/2.5 ML AMPUL.NEB NEB SCH ×6 (03:50→23:50)
[2016-06-17] MEDS: ALBUTEROL FS 2.5 MG/3 ML VIAL.NEB NEB SCH ×6 (03:50→23:50)
[2016-06-17 05:03] LABS: BASOPHILS % (AUTO) 0.2 % (0.0-2.0); EOSINOPHILS % (AUTO) 0.2 % (0.0-6.0); HEMATOCRIT 47 % (33-45); HEMOGLOBIN 15.2 g/dL (11.5-14.8); LYMPHOCYTES # (AUTO) 0.6 /CMM (0.8-4.8); LYMPHOCYTES % (AUTO) 4.9 % (20.0-44.0); MEAN CORPUSCULAR HEMOGLOBIN 34 PG (26.0-33.0); MEAN CORPUSCULAR HGB CONC 33 g/dl (31.0-36.0); MEAN CORPUSCULAR VOLUME 105 fL (82-100); MONOCYTES # (AUTO) 1.1 /CMM (0.1-1.30); MONOCYTES % (AUTO) 9.2 % (2.0-12.0); NEUTROPHILS # (AUTO) 9.8 /CMM (1.8-8.9); NEUTROPHILS % (AUTO) 85.5 % (43.0-81.0); PLATELET COUNT (AUTO) 116 /CMM (150-450); RED BLOOD CELL COUNT(AUTO) 4.45 MIL/uL (4.0-5.2); WHITE BLOOD COUNT (AUTO) 11.5 K/uL (4.3-11.0)
[2016-06-17 05:53] LABS: ALBUMIN 2.5 g/dL (3.4-5.0); CALCIUM, SERUM 8.4 mg/dL (8.5-10.1); CREATININE 1.2 mg/dL (0.6-1.3); MAGNESIUM 2.3 mg/dL (1.8-2.4)
[2016-06-17 05:55] LABS: PHOSPHORUS 3.8 mg/dL (2.5-4.9)
--- NOTE | 2016-06-17 06:16 | NUR ---
PLATE PAINTER. DURING SHIFT PT SLEPT WELL. PT REQUESTED TO OFF BIPAP. OXYGEN 2L VIA NASAL CANNULA.
--- NOTE | 2016-06-17 08:00 | NUR ---
ICU/RN AM SHIFT INITIAL NOTES RECEIVED PT AWAKE IN BED, PT A/O X 3, DENIES ANY SYMPTOMS, NO ACUTE RESPIRATORY DISTRESS NOTED. ON 2L O2 VIA N/C, SATURATING @ 97%, , LUNG SOUNDS DIMINISHED. ON TELE WITH A-FIB, HR 94. IV SITES FLUSHED, PATENT WITH NO S/S OF INFECTION, SL. LOONEY CATHETER NOTED WITH YELLOW URINE OUTPUT. PT IS COMFORTABLE AT THIS TIME. SCHEDULED AM MEDS TO BE GIVEN. CL WITHIN REACHED AND SAFETY MAINTAINED. ON GOING MONITORING.
--- NOTE | 2016-06-17 08:15 | NUR ---
ICU/RN ROUNDS - DR. SILVA UPDATED PT'S CONDITION. PT SEEN & EXAMINED PT. NO NEW ORDERS RECEIVED AT THIS TIME. ON GOING MONITORING.
--- NOTE | 2016-06-17 08:30 | NUR ---
ICU/RN ROUNDS - DR. NG PT SEEN & EXAMINED BY DR. NG. RECEIVED NEW ORDER TO ADD DIGOXIN LEVEL TO THE AM LABS. ORDER NOTED. MONITORING CONTINUED.
[2016-06-17] MEDS: PANTOPRAZOLE 40 MG VIAL IV SCH (09:02)
[2016-06-17] MEDS: methylPREDNISolone SOD SUCC 125 MG/2ML VIAL IV SCH (09:02)
[2016-06-17] MEDS: AMIODARONE HCL 200 MG TABLET PO SCH ×3 (09:03→18:34)
[2016-06-17] MEDS: LEVOTHYROXINE SODIUM 112 MCG TABLET PO SCH (09:03)
--- NOTE | 2016-06-17 10:27 | NUR ---
ICU/RN LONG EVALUATION RECEIVED A CALL FROM DR. GEORGE UPDATING REGARDING TRANSFER OF FACILITY FOR PT. PER DR. SILVA, LONG RESPIRATORY WILL CONDUCT AN EVALUATION TOMORROW.
--- NOTE | 2016-06-17 12:00 | NUR ---
ICU/RN NOON ROUNDS NO CHANGE OF CONDITION. PT'S FRIENDS AND AT BEDSIDE. REPOSITIONED. MONITORING CONTINUED.
[2016-06-17] MEDS: DIGOXIN INJ 0.5 MG/2 ML AMPUL IV SCH (13:00)
--- NOTE | 2016-06-17 16:00 | NUR ---
ICU/RN PHYSICAL THERAPIST NO CHANGE OF CONDITION. PT BEING SEEN BY PHYSICAL THERAPIST. MONITORING CONTINUED.
[2016-06-17 19:02] LABS: INR 1.6 (0.87-1.13); PROTHROMBIN TIME 17.7 SECS (9.5-12.7)
[2016-06-17] MEDS: WARFARIN SODIUM 5 MG TABLET PO SCH (19:18)
--- NOTE | 2016-06-17 19:25 | NUR ---
ICU/RN AM SHIFT END NOTES NO ACUTE CHANGE OF CONDITION NOTED DURING THE SHIFT. NEEDS MET. NASAL CANNULA IN PLACED WITH 2L O2, IV SITE PATENT WITH NO S/S OF INFECTION, SL AND LOONEY CATHETER INTACT. PT ENDORSED TO PM NURSE TO CONTINUE CARE. CL WITHIN REACHED AND SAFETY MAINTAINED.
--- NOTE | 2016-06-17 21:50 | NUR ---
SAIL CUTTER BLOOD CULTURES DONE . WILL GIVE ROCEPHIN.
[2016-06-17] MEDS ORDERED: IV D5W 50 ML IV ONE (22:15)
[2016-06-17] MEDS ORDERED: CEFTRIAXONE 1 G VIAL ONE (22:15)
[2016-06-17] MEDS ORDERED: SECONDARY IV SET 1 EA INFUS.SET MC ONE (22:16)
[2016-06-17] MEDS: CEFTRIAXONE 1 G in IV D5W 50 ML IV SCH (22:49)
[2016-06-17] MEDS ORDERED: IV SET PRIMARY PUMP SET 1 EA INFUS.SET MC ONE (22:59)
--- NOTE | 2016-06-17 23:00 | NUR ---
PSYCHIATRIC REGISTERED NURSE PT PLACED ON NOCTURNAL BIPAP. RESP RATE ELEVATED. HEARING AID REMOVED AND DENTURES PLACED AT BEDSIDE. EAR PLUGS PROVIDED.
--- NOTE | 2016-06-17 23:17 | NUR ---
pt placed on bipap due to increased rr Addendum: 06/17/16 at 4088 by KATYA FUNES RT Amended: Links added.
[2016-06-18] VITALS (28 sets, daily range): BP systolic 111–135; BP diastolic 59–84
[2016-06-18] MEDS: IPRATROPIUM NEB FS 0.5 MG/2.5 ML AMPUL.NEB NEB SCH ×5 (04:23→20:19)
[2016-06-18] MEDS: ALBUTEROL FS 2.5 MG/3 ML VIAL.NEB NEB SCH ×5 (04:23→20:19)
[2016-06-18 04:56] LABS: HEMATOCRIT 47 % (33-45); HEMOGLOBIN 14.9 g/dL (11.5-14.8); LYMPHOCYTES # (AUTO) 0.3 /CMM (0.8-4.8); LYMPHOCYTES % (AUTO) 2.8 % (20.0-44.0); MEAN CORPUSCULAR HEMOGLOBIN 34 PG (26.0-33.0); MEAN CORPUSCULAR HGB CONC 32 g/dl (31.0-36.0); MEAN CORPUSCULAR VOLUME 105 fL (82-100); MONOCYTES # (AUTO) 0.9 /CMM (0.1-1.30); MONOCYTES % (AUTO) 7.5 % (2.0-12.0); NEUTROPHILS # (AUTO) 10.5 /CMM (1.8-8.9); NEUTROPHILS % (AUTO) 89.7 % (43.0-81.0); PLATELET COUNT (AUTO) 139 /CMM (150-450); RED BLOOD CELL COUNT(AUTO) 4.45 MIL/uL (4.0-5.2); WHITE BLOOD COUNT (AUTO) 11.7 K/uL (4.3-11.0)
[2016-06-18 05:08] LABS: CALCIUM, SERUM 8.4 mg/dL (8.5-10.1); CREATININE 1.2 mg/dL (0.6-1.3); POTASSIUM 5.1 mmol/L (3.5-5.1)
--- NOTE | 2016-06-18 05:33 | NUR ---
ASSET MANAGEMENT COORDINATOR PER PT REQUEST , TOOK PT OFF BIPAP AND PLACED BACK ON NC 2L . DENTURES ALSO PUT BACK IN . PT REFUSED BED BATH AND LINEN CHANGE AT THIS TIME. NO BM NOTED. REPOSITIONED PT FOR COMFORT. Addendum: 06/18/16 at 0535 by ARON ALTMAN RN NO RESP DISTRESS NOTED AT THIS TIME.
--- NOTE | 2016-06-18 07:31 | NUR ---
INITIAL CIVIL MANAGER NOTE RCVD PT AWAKE AND ALERT SHOWING NO S/O DISTRESS OR C/O PAIN. AFIB ON TELE HR 84, TOLERATING O2 VIA NC, LOONEY DRAINING YELLOW URINE. IV SITES RIGHT AC AND RIGHT FA #20 C/D/I/PATENT. NO S/O INFILTRATION OR PHLEBITIS OBSERVED UPON FLUSHING. WILL CONTINUE TO MONITOR PT FOR SAFETY AND COMFORT. CALL LIGHT WITHIN REACH. BED IN LOW AND LOCKED POSITION.
[2016-06-18] MEDS: LEVOTHYROXINE SODIUM 112 MCG TABLET PO SCH (07:58)
[2016-06-18] MEDS: PANTOPRAZOLE 40 MG VIAL IV SCH (08:00)
[2016-06-18] MEDS: methylPREDNISolone SOD SUCC 125 MG/2ML VIAL IV SCH (08:00)
[2016-06-18] MEDS: AMIODARONE HCL 200 MG TABLET PO SCH ×3 (08:00→17:28)
--- NOTE | 2016-06-18 08:14 | NUR ---
06/13 @0916, PER RN DRISS, PT INTUBATED AND DOES NOT HAVE NG/OG TUBE ORDERING DR VÁZQUEZ, PT ALSO HAVING EEG TODAY, PER RN PT CONDITION IS UNABLE TO TOLERATE NGT, RN AKI WHEN PT ABLE FOR EXAM. 06/14 @1053, PER TAO GOMEZ PT CONDITION THE SAME X 1 DAY AGO, NO NG/OGT, AND INTUBATED , SHE WILL REFER TO ORDERING AND CALL BACK WITH FURTHER DETAILS EXAM ON HOLD 06/18 @0809 PER TAO MADRID EXAM CANCELLED PER
[2016-06-18 08:15] LABS: INR 1.55 (0.87-1.13)
--- NOTE | 2016-06-18 08:31 | NUR ---
BATTERY ASSEMBLER DRY CELL NOTE SPOKE WITH SHIRA TSANG AND DR NG THIS AM. PLAN FOR PT TO BE TRANSFERRED TO [facility] IF ACCEPTED. CM AWARE.
--- NOTE | 2016-06-18 11:49 | NUR ---
PHYSICIAN COMPENSATION ANALYST NOTE PT'S AT BEDSIDE, UPDATED ON PT'S CONDITION. QUESTIONS ANSWERED.
[2016-06-18] MEDS: DIGOXIN INJ 0.5 MG/2 ML AMPUL IV SCH (12:44)
[2016-06-18] MEDS: DOCUSATE SODIUM 100 MG CAPSULE PO SCH (17:27)
[2016-06-18] MEDS: WARFARIN SODIUM 5 MG TABLET PO SCH (17:28)
--- NOTE | 2016-06-18 18:50 | NUR ---
ENDING CONVEYOR WEIGHER OPERATOR NOTE PT AWAKE AND ALERT SHOWING NO S/O DISTRESS OR C/O PAIN. CONTINUES TO BE AFIB ON TELE HR 94 AND TOLERATING O2 VIA NC. TACHYPNEA PERSISTS (30s-40s, 50s DURING BATH). LOONEY IN PLACE CONTINUES TO DRAIN YELLOW URINE. IV SITES LEAKING. IV PLACEMENT ATTEMPTED AND UNABLE. MEGHNA LANDA INFORMED. WILL ENDORSE TO PRINTING PRESSMAN RN. PT'S CARE WILL BE ENDORSED TO PRINTING PRESSMAN RN AT CHANGE OF SHIFT. CALL LIGHT WITHIN REACH. BED IN LOW AND LOCKED POSITION. PT'S TRANSFER TO [facility] POSTPONED DUE TO PT'S TACHYPNEA. SYEDA AWARE.
--- NOTE | 2016-06-18 19:30 | NUR ---
RN INITIAL NOTES RECEIVED PT ASLEEP ON BED, EASILY AROUSABLE TO NAME AND TOUCH. A/O X2-3, DROWSY. ON 2L NASAL CANNULA, TACHYPNEIC WITH RR 30-40'S, SATURATING > 95%. CURRENTLY CONTROLLED AFIB ON THE MONITOR, HR 90'S. LOONEY CATH NOTED. RIGHT AC AND RIGHT FOREARM 20G ARE BOTH LEAKING, WILL REMOVE AND ATTEMPT TO START A NEW IV. BED LOW AND LOCKED, SIDERAILS UP, CALL LIGHT WITHIN REACH. WILL MONITOR
--- NOTE | 2016-06-18 20:25 | NUR ---
PT PLACED ON BIPAP DUE TO INCREASED RR Addendum: 06/18/16 at 2025 by KATYA FUNES RT Amended: Links added.
--- NOTE | 2016-06-18 20:30 | NUR ---
RN NOTES PT SATURATION WENT DOWN TO 82%, ALTHOUGH PATIENT WAS EASILY AROUSABLE. CALLED RT STAT. PATIENT PUT BACK ON BIPAP 15/5, R20, 30% FIO2. WILL MONITOR CLOSELY
[2016-06-18] MEDS ORDERED: IV SET PRIMARY PUMP SET 1 EA INFUS.SET MC ONE (20:57)
[2016-06-18] MEDS ORDERED: SECONDARY IV SET 1 EA INFUS.SET MC ONE (20:57)
[2016-06-18] MEDS ORDERED: IV NS 0.9% 250 ML IV ONE (20:57)
--- NOTE | 2016-06-18 21:00 | NUR ---
RN NOTES NOTIFIED DR MON OF PATIENT CONDITION AND THAT PATIENT NEEDS BIPAP. MD ORDERED FOR PATIENT TO STAY IN ICU OVERNIGHT
[2016-06-18] MEDS: CEFTRIAXONE 1 G in IV D5W 50 ML IV SCH (21:07)
[2016-06-19] VITALS (27 sets, daily range): BP systolic 95–128; BP diastolic 55–79
[2016-06-19] MEDS: IPRATROPIUM NEB FS 0.5 MG/2.5 ML AMPUL.NEB NEB SCH ×7 (00:03→23:08)
[2016-06-19] MEDS: ALBUTEROL FS 2.5 MG/3 ML VIAL.NEB NEB SCH ×7 (00:03→23:08)
[2016-06-19 04:32] LABS: BASOPHILS % (AUTO) 0.2 % (0.0-2.0); HEMATOCRIT 52 % (33-45); HEMOGLOBIN 16.8 g/dL (11.5-14.8); LYMPHOCYTES # (AUTO) 0.6 /CMM (0.8-4.8); LYMPHOCYTES % (AUTO) 5.1 % (20.0-44.0); MEAN CORPUSCULAR HEMOGLOBIN 34 PG (26.0-33.0); MEAN CORPUSCULAR HGB CONC 32 g/dl (31.0-36.0); MEAN CORPUSCULAR VOLUME 104 fL (82-100); MONOCYTES % (AUTO) 8.7 % (2.0-12.0); NEUTROPHILS # (AUTO) 9.7 /CMM (1.8-8.9); PLATELET COUNT (AUTO) 133 /CMM (150-450); RDW COEFFICIENT OF VARIATION 14.6 (11.5-15.0); RED BLOOD CELL COUNT(AUTO) 4.97 MIL/uL (4.0-5.2); WHITE BLOOD COUNT (AUTO) 11.3 K/uL (4.3-11.0)
[2016-06-19 04:47] LABS: INR 2.57 (0.87-1.13); PROTHROMBIN TIME 29.2 SECS (9.5-12.7)
[2016-06-19 05:02] LABS: CALCIUM, SERUM 8.6 mg/dL (8.5-10.1); CREATININE 1.2 mg/dL (0.6-1.3); POTASSIUM 5.2 mmol/L (3.5-5.1)
--- NOTE | 2016-06-19 06:30 | NUR ---
RN CLOSING NOTES PT REMAINS TO BE ON BIPAP, SATURATING WELL, NO S/S OF RESP DISTRESS. ALL DUE MEDS GIVEN, AM CARE PROVIDED. WILL ENDORSE TO AM RN
--- NOTE | 2016-06-19 08:00 | NUR ---
ICU/RN - Initial Notes Received pt in bed awake, off BiPap placed on O2 @ 3lpm via nasal cannula by RT Doc. O2 Saturation 90-92%. Pt alert and oriented x3. Tele reads Afib 87. Denies pain/discomfort. Fernandes catheter intact draining urine to gravity. Safety and comfort measures in place. Pt repositioned for comfort. Oral care provided. Will continue to monitor pt closely.
--- NOTE | 2016-06-19 08:23 | NUR ---
WOUND CARE CONSULT: PT SEEN PREVIOUSLY BY WOUND TEAM NOW PRESENTS WITH REDNESS TO RT BREAST FOLD AND EXCORIATION TO LEFT BREAST FOLD. RECOMMENDATIONS MADE AND DISCUSSED WITH NURSING STAFF. PT REFUSED TO TURN FOR FULL ASSESSMENT OF BACK, BUTTOCKS AND SACRAL AREA. PT ON COMFORT GEL MATTRESS. WILFRED SCORE IS 16. WILL SEE PRN. CONTINUE ALL SKIN PROTECTION MEASURES. MD IN AGREEMENT WITH PLAN OF CARE. Addendum: 06/19/16 at 0826 by DARWIN GODINEZ WNDNU Amended: Links added.
[2016-06-19] MEDS: LEVOTHYROXINE SODIUM 112 MCG TABLET PO SCH (08:45)
[2016-06-19] MEDS: DOCUSATE SODIUM 100 MG CAPSULE PO SCH ×2 (08:45→16:14)
[2016-06-19] MEDS: PANTOPRAZOLE 40 MG VIAL IV SCH (08:45)
[2016-06-19] MEDS: AMIODARONE HCL 200 MG TABLET PO SCH ×3 (08:45→16:14)
[2016-06-19] MEDS: methylPREDNISolone SOD SUCC 125 MG/2ML VIAL IV SCH (08:45)
--- NOTE | 2016-06-19 09:00 | NUR ---
ICU/RN - Notes Pt noted with tachypnea RR 40's. RT Doc made aware. Dr Rojas aware, stating pt is tachypneic at baseline due to hiatal hernia causing shallow fast breaths. Per Dr Rojas cleared for MARLENA status.
[2016-06-19] MEDS: DIGOXIN INJ 0.5 MG/2 ML AMPUL IV SCH (12:08)
--- NOTE | 2016-06-19 12:15 | NUR ---
ICU/RN - Notes Family at bedside, updated on plan of care.
--- NOTE | 2016-06-19 14:18 | NUR ---
Left message to [place] [facility] case management rn Bee [phone] regarding obtaining approval for [place] as per pulmonary recommendations. Addendum: 06/19/16 at 1418 by SEAN WEBB RN Amended: Links added.
[2016-06-19] MEDS: WARFARIN SODIUM 5 MG TABLET PO SCH (16:15)
--- NOTE | 2016-06-19 16:29 | NUR ---
still no response from [facility], left message to Briana Messina [phone] requesting approval for [place] and faxed clinicals to [phone]. Family has been updated with dc planning Addendum: 06/19/16 at 1629 by SEAN WEBB RN Amended: Links added.
--- NOTE | 2016-06-19 16:41 | NUR ---
Clinicals and request for LTAC approval faxed to [facility] [phone] and [facility] [phone]. Addendum: 06/19/16 at 1641 by SEAN WEBB RN Amended: Links added.
--- NOTE | 2016-06-19 18:38 | NUR ---
ICU/RN - Closing Notes No significant change in pt's condition. Pt remains tachypneic on O2 @ 3lpm via nasal cannula with O2 saturation 92%, MD aware. Denies SOB. All needs met and attended. Safety and comfort measures in place. Will endorse to night nurse for continuity of care.
--- NOTE | 2016-06-19 19:30 | NUR ---
RN INITIAL NOTES RECEIVED PT AWAKE ON BED, A/O X2-3. ON 3L NASAL CANNULA, TACHYPNEIC WITH 40'S, SATURATING WELL. CURRENTLY CONTROLLED AFIB ON THE MONITOR, HR 80'S. LOONEY CATH NOTED. RIGHT HAND 18G SL IS FLUSHED AND PATENT, NO S/S OF INFILTRATION/INFECTION, DRESSING CDI. BED LOW AND LOCKED, SIDERAILS UP, CALL LIGHT WITHIN REACH. WILL MONITOR
[2016-06-19] MEDS: CEFTRIAXONE 1 G in IV D5W 50 ML IV SCH (21:21)
--- NOTE | 2016-06-19 23:30 | NUR ---
PT PLACED ON NOC BIPA RN NOTIFIED. WILL CONTINUE TO MONITOR.
[2016-06-20] VITALS: BP_SYST 111; BP_SYST 113; BP_DIAS 64; BP_DIAS 67
[2016-06-20] MEDS: IPRATROPIUM NEB FS 0.5 MG/2.5 ML AMPUL.NEB NEB SCH ×6 (03:00→22:59)
[2016-06-20] MEDS: ALBUTEROL FS 2.5 MG/3 ML VIAL.NEB NEB SCH ×6 (03:00→22:59)
[2016-06-20 04:00] VITALS: BP 113/63
[2016-06-20 06:53] LABS: HEMATOCRIT 48 % (33-45); HEMOGLOBIN 15.5 g/dL (11.5-14.8); LYMPHOCYTES # (AUTO) 0.6 /CMM (0.8-4.8); LYMPHOCYTES % (AUTO) 5.1 % (20.0-44.0); MEAN CORPUSCULAR HEMOGLOBIN 34 PG (26.0-33.0); MEAN CORPUSCULAR HGB CONC 33 g/dl (31.0-36.0); MEAN CORPUSCULAR VOLUME 105 fL (82-100); MONOCYTES # (AUTO) 1.1 /CMM (0.1-1.30); NEUTROPHILS # (AUTO) 9.7 /CMM (1.8-8.9); NEUTROPHILS % (AUTO) 84.9 % (43.0-81.0); PLATELET COUNT (AUTO) 115 /CMM (150-450); RDW COEFFICIENT OF VARIATION 14.5 (11.5-15.0); RED BLOOD CELL COUNT(AUTO) 4.53 MIL/uL (4.0-5.2); WHITE BLOOD COUNT (AUTO) 11.4 K/uL (4.3-11.0)
[2016-06-20 07:01] LABS: PROTHROMBIN TIME 55.1 SECS (9.5-12.7)
[2016-06-20 07:16] LABS: CALCIUM, SERUM 8.6 mg/dL (8.5-10.1); POTASSIUM 5.3 mmol/L (3.5-5.1)
[2016-06-20 07:38] LABS: INR 4.67 (0.87-1.13)
[2016-06-20 08:00] VITALS: BP 120/74
[2016-06-20] MEDS: PANTOPRAZOLE 40 MG VIAL IV SCH (08:15)
[2016-06-20] MEDS: DOCUSATE SODIUM 100 MG CAPSULE PO SCH ×2 (08:15→17:00)
[2016-06-20] MEDS: methylPREDNISolone SOD SUCC 125 MG/2ML VIAL IV SCH (08:16)
[2016-06-20] MEDS: AMIODARONE HCL 200 MG TABLET PO SCH ×3 (08:16→17:57)
[2016-06-20] MEDS: LEVOTHYROXINE SODIUM 112 MCG TABLET PO SCH (08:16)
--- NOTE | 2016-06-20 11:44 | NUR ---
RN MARLENA NOTES INR TODAY 4.67H WILL HOLD COUMADIN PER PROTOCOL, SPOKE WITH DR MICHAEL CUNNINGHAM.
[2016-06-20 12:00] VITALS: BP 103/60
[2016-06-20] MEDS: DIGOXIN INJ 0.5 MG/2 ML AMPUL IV SCH (12:15)
[2016-06-20 16:00] VITALS: BP 118/69
[2016-06-20] MEDS: WARFARIN SODIUM 5 MG TABLET PO SCH (16:02)
--- NOTE | 2016-06-20 18:26 | NUR ---
RN MARLENA ENDING NOTES PT STABLE WITH NO ACUTE CHANGES NOTED, WILL ENDORSE TO PM NURSE.
[2016-06-20 20:00] VITALS: BP 120/77
[2016-06-20] MEDS: CEFTRIAXONE 1 G in IV D5W 50 ML IV SCH (21:46)
[2016-06-21] VITALS (7 sets, daily range): BP systolic 120–133; BP diastolic 55–85
[2016-06-21] MEDS: ALBUTEROL FS 2.5 MG/3 ML VIAL.NEB NEB SCH ×6 (03:19→23:50)
[2016-06-21] MEDS: IPRATROPIUM NEB FS 0.5 MG/2.5 ML AMPUL.NEB NEB SCH ×6 (03:19→23:50)
[2016-06-21 06:59] LABS: PROTHROMBIN TIME 76.8 SECS (9.5-12.7)
[2016-06-21 07:06] LABS: INR 6.38 (0.87-1.13)
--- NOTE | 2016-06-21 07:15 | NUR ---
RN MARLENA INITIAL NOTES RECEIVED REPORT AND PT FROM PM NURSE, A&O X2-3, ON TELE MON AFIB WITH HR 88 CONTROLLED, PT SLEEPING AT THIS TIME, NO SOB, LOONEY CATH DRAIING URINE VIA GRAVITY, ON 4L NC SAT ABOVE 95%, RT HAND 20 G IV NO INFILTRATION NOTED, ALL NEEDS MET, ALL SAFETY MEASURES INITIATED, SIDE RAILS X2, BED LOW AND LOCKED, CALL LIGHT WITHIN REACH, WILL CONTINUE TO MONITOR.
--- NOTE | 2016-06-21 07:20 | NUR ---
RN MARLENA NOTES CALLED [facility] REGARDING LAB CRITICAL LAB RESULT FOR INR 6.38 H, LEFT MESSAGE FOR MICHAEL CUNNINGHAM AND WAITING FOR CALL BACK.
[2016-06-21] MEDS: DOCUSATE SODIUM 100 MG CAPSULE PO SCH ×2 (08:09→17:13)
[2016-06-21] MEDS: LEVOTHYROXINE SODIUM 112 MCG TABLET PO SCH (08:09)
[2016-06-21] MEDS: methylPREDNISolone SOD SUCC 125 MG/2ML VIAL IV SCH (08:09)
[2016-06-21] MEDS: AMIODARONE HCL 200 MG TABLET PO SCH ×3 (08:09→17:14)
[2016-06-21] MEDS: PANTOPRAZOLE 40 MG VIAL IV SCH (08:09)
--- NOTE | 2016-06-21 08:29 | NUR ---
RN MARLENA NOTES SPOKE WITH MICHAEL CUNNINGHAM REGARDING CRITICAL LABS AND STATED TO WATCH FOR BLEEDING AND HOLD COUMADIN NO NEW ORDERS.
[2016-06-21] MEDS: DIGOXIN INJ 0.5 MG/2 ML AMPUL IV SCH (13:06)
[2016-06-21] MEDS: WARFARIN SODIUM 5 MG TABLET PO SCH (17:00)
--- NOTE | 2016-06-21 18:28 | NUR ---
RN MARLENA ENDING NOTES NO CHANGES NOTED, COUMADIN HELD DUE TO HIGH INR AND PER MD MICHAEL CUNNINGHAM STATED TO HOLD, ALL DUE MEDS GIVEN, ALL NEEDS MET, PT STABLE FOR CONTINUITY OF CARE.
--- NOTE | 2016-06-21 21:00 | NUR ---
MARLENA NOTES PLACED ON BIPAP BY RT W/FIO2 30% RATE OF 20,IE 15/5 SAT OF 93-94 %.
[2016-06-21] MEDS: CEFTRIAXONE 1 G in IV D5W 50 ML IV SCH (21:28)
[2016-06-22] VITALS: BP 132/83
--- NOTE | 2016-06-22 02:10 | NUR ---
MARLENA NOTES PT REFUSED BIPAP,PLACED ON 3LN/C BY RT.DENIES SHORTNESS OF BREATH.SAT93%.SITTING UPRIGHT.
[2016-06-22] MEDS: IPRATROPIUM NEB FS 0.5 MG/2.5 ML AMPUL.NEB NEB SCH ×6 (03:59→22:40)
[2016-06-22] MEDS: ALBUTEROL FS 2.5 MG/3 ML VIAL.NEB NEB SCH ×6 (03:59→22:40)
[2016-06-22 04:00] VITALS: BP 123/77
--- NOTE | 2016-06-22 06:12 | NUR ---
MARLENA NOTES TOLERATING N/C WELL W/ SAT. OF 94-96%.OFFERS NO COMPLAINTS.
[2016-06-22 08:00] VITALS: BP 128/71
--- NOTE | 2016-06-22 08:00 | NUR ---
RN MARLENA: pt.is sleepy-A/Ox2, O2sat.WNL on 4L n/c, Afib, HR around 70, SBP [id number], INR 6.3 on 06/21, Coumadin daily, will repeat PT/INR today, no acute bleeding noted, R.hand IVPL is painfull and slightly edema around
--- NOTE | 2016-06-22 08:10 | NUR ---
RN MARLENA: unable to remove synthroid from pyxis, notified pharmacy
[2016-06-22] MEDS: LEVOTHYROXINE SODIUM 112 MCG TABLET PO SCH (08:56)
[2016-06-22] MEDS: DOCUSATE SODIUM 100 MG CAPSULE PO SCH ×3 (09:00→16:56)
[2016-06-22] MEDS: PANTOPRAZOLE 40 MG VIAL IV SCH (09:46)
[2016-06-22] MEDS: methylPREDNISolone SOD SUCC 125 MG/2ML VIAL IV SCH (09:46)
[2016-06-22] MEDS: AMIODARONE HCL 200 MG TABLET PO SCH ×3 (09:47→16:59)
[2016-06-22 10:09] LABS: PROTHROMBIN TIME 52.9 SECS (9.5-12.7)
[2016-06-22 10:11] LABS: INR 4.49 (0.87-1.13)
[2016-06-22] MEDS ORDERED: FLUCONAZOLE IN NS 100 MG in PREMIX 1 EA IV SCH ×2 (11:00)
[2016-06-22] MEDS ORDERED: IV SET PRIMARY PUMP SET 1 EA INFUS.SET MC ONE (11:05)
--- NOTE | 2016-06-22 11:17 | NUR ---
RN MARLENA: dentures were removed, oral care done per orders with antifungal started Tx, updated with VS, PT/INR 52/4.4: continue hold Coumadin
[2016-06-22 12:11] VITALS: BP 131/70
[2016-06-22] MEDS: NYSTATIN (PYXIS) 500,000 UNIT/5 ML ORAL.SUSP PO SCH ×2 (12:59→17:00)
[2016-06-22] MEDS: DIGOXIN INJ 0.5 MG/2 ML AMPUL IV SCH (13:10)
[2016-06-22 16:00] VITALS: BP 118/68
[2016-06-22] MEDS ORDERED: WARFARIN SODIUM 5 MG TABLET PO SCH (17:00)
--- NOTE | 2016-06-22 19:30 | NUR ---
MS RN INITIAL NOTE RECEIVED REPORT FROM PATO BURGER. PT IN BED. CAREGIVER AT BEDSIDE. A/A/O X3. LUNG SOUNDS CLEAR. BOWEL SOUNDS PRESENT. PULSES PRESENT IN ALL EXTREMITIES. LOONEY INTACT AND DRAINING. IV PATENT AND INTACT. BED IN LOW LOCKED POSITION. CALL LIGHT WITHIN REACH. WILL CONTINUE TO MONITOR.
[2016-06-22 20:00] VITALS: BP 125/75
[2016-06-22] MEDS ORDERED: IV NS 0.9% 250 ML IV ONE (21:16)
[2016-06-22] MEDS ORDERED: SECONDARY IV SET 1 EA INFUS.SET MC ONE (21:16)
[2016-06-22] MEDS: CEFTRIAXONE 1 G in IV D5W 50 ML IV SCH (21:18)
[2016-06-23] MEDS: NYSTATIN (PYXIS) 500,000 UNIT/5 ML ORAL.SUSP PO SCH ×5 (00:48→23:34)
[2016-06-23] MEDS: IPRATROPIUM NEB FS 0.5 MG/2.5 ML AMPUL.NEB NEB SCH ×6 (03:20→22:46)
[2016-06-23] MEDS: ALBUTEROL FS 2.5 MG/3 ML VIAL.NEB NEB SCH ×6 (03:20→22:46)
[2016-06-23 04:00] VITALS: BP 137/63
--- NOTE | 2016-06-23 07:00 | NUR ---
RN NOTES RECEIVED PT ON BED, A/OX2-3 , RESPIRATION EVEN AND UNLABORED, O2 AT 4L N/C IN USE , VSS STABLE, LOONEY INTACT AND DRAINING TO GRAVITY , LUNG SOUNDS CLEAR. BOWEL SOUNDS PRESENT. PULSES PRESENT IN ALL EXTREMITIES. LET HAND IV SITE #22 SITE CDI, BED LOCKED AND IN LOWEST POSITION. CALL LIGHT WITHIN REACH. WILL CONTINUE TO MONITOR PT CLOSELY AND NOTIFY MD FOR ANY SIGNIFICANT CHANGES .
[2016-06-23 07:02] LABS: HEMATOCRIT 50 % (33-45); HEMOGLOBIN 16.1 g/dL (11.5-14.8); LYMPHOCYTES # (AUTO) 0.5 /CMM (0.8-4.8); LYMPHOCYTES % (AUTO) 3.9 % (20.0-44.0); MEAN CORPUSCULAR HEMOGLOBIN 34 PG (26.0-33.0); MEAN CORPUSCULAR HGB CONC 32 g/dl (31.0-36.0); MEAN CORPUSCULAR VOLUME 105 fL (82-100); MONOCYTES # (AUTO) 0.8 /CMM (0.1-1.30); NEUTROPHILS # (AUTO) 12.2 /CMM (1.8-8.9); NEUTROPHILS % (AUTO) 90.1 % (43.0-81.0); PLATELET COUNT (AUTO) 97 /CMM (150-450); RDW COEFFICIENT OF VARIATION 14.6 (11.5-15.0); RED BLOOD CELL COUNT(AUTO) 4.73 MIL/uL (4.0-5.2); WHITE BLOOD COUNT (AUTO) 13.6 K/uL (4.3-11.0)
[2016-06-23 08:00] VITALS: BP 139/81
[2016-06-23 08:18] LABS: CALCIUM, SERUM 8.4 mg/dL (8.5-10.1); CREATININE 0.9 mg/dL (0.6-1.3); MAGNESIUM 1.9 mg/dL (1.8-2.4); PHOSPHORUS 2.5 mg/dL (2.5-4.9)
[2016-06-23] MEDS: PANTOPRAZOLE 40 MG VIAL IV SCH (08:27)
[2016-06-23] MEDS: methylPREDNISolone SOD SUCC 125 MG/2ML VIAL IV SCH (08:27)
[2016-06-23] MEDS: DOCUSATE SODIUM 100 MG CAPSULE PO SCH ×2 (08:27→17:03)
[2016-06-23] MEDS: LEVOTHYROXINE SODIUM 112 MCG TABLET PO SCH (08:28)
[2016-06-23] MEDS: AMIODARONE HCL 200 MG TABLET PO SCH ×3 (08:28→17:04)
[2016-06-23 08:33] LABS: INR 3.63 (0.87-1.13); PROTHROMBIN TIME 42.2 SECS (9.5-12.7)
[2016-06-23 09:05] LABS: LYMPHOCYTES % (MANUAL) 1 % (16-48); MONOCYTES % (MANUAL) 4 % (0-11.0); NEUTROPHILS % (MANUAL) 95 (42-76)
[2016-06-23 09:06] LABS: ANISOCYTOSIS 1+; PLATELET ESTIMATE DECREASED
[2016-06-23 12:00] VITALS: BP 141/82
--- NOTE | 2016-06-23 12:00 | NUR ---
RN NOTES PT STABLE ,SUPPORTIVE FAMILY AT THE BEDSIDE . NO DISTRESS NOTED, CONTINUE TO MONITOR .
[2016-06-23] MEDS: DIGOXIN INJ 0.5 MG/2 ML AMPUL IV SCH (12:30)
[2016-06-23 16:00] VITALS: BP 135/85
--- NOTE | 2016-06-23 18:44 | NUR ---
RN NOTES PT STABLE , L HAND IV SITE CDI, RESPIRATION EVEN AND UNLABORED, NO SOB NOTED, MEDICATED PER MD ORDER , NO SIGNIFICANT CHANGES NOTED ON THIS SHIFT.
--- NOTE | 2016-06-23 19:30 | NUR ---
MS RN INITIAL NOTE RECEIVED REPORT FROM HORTENCIA BURGER. PT IN BED WITH CAREGIVER AT BEDSIDE. PT IS A/A/O X3. LUNG SOUNDS MINIMAL RHONCHI AT UPPER BASES, DIMINISHED AT LOWER BASES. BOWEL SOUNDS PRESENT. LOONEY INTACT AND DRAINING. IV PATENT AND INTACT. PT HAS HAD MORE COUGHING UP OF PHELGM, ORAL CARE PROVIDED AND A TOWEL PLACED UNDER CHIN FOR ANY DROOLING THAT MAY OCCUR. WILL SUCTION MOUTH FREQUENTLY. PULSES PRESENT IN ALL EXTREMITIES. BED IN LOW LOCKED POSITION. CALL LIGHT WITHIN REACH. WILL CONTINUE TO MONITOR.
[2016-06-23 20:00] VITALS: BP 133/73
[2016-06-23] MEDS: CEFTRIAXONE 1 G in IV D5W 50 ML IV SCH (20:56)
--- NOTE | 2016-06-23 22:56 | NUR ---
PT REF BIPAP. RN NOTIFIED. PT O2 SAT 97% ON 4L NC. WILL CONTINUE TO MONITOR.
[2016-06-24] MEDS: ALBUTEROL FS 2.5 MG/3 ML VIAL.NEB NEB SCH ×6 (02:47→23:05)
[2016-06-24] MEDS: IPRATROPIUM NEB FS 0.5 MG/2.5 ML AMPUL.NEB NEB SCH ×6 (02:47→23:05)
[2016-06-24 04:00] VITALS: BP 115/68
[2016-06-24] MEDS: NYSTATIN (PYXIS) 500,000 UNIT/5 ML ORAL.SUSP PO SCH ×4 (05:33→23:58)
[2016-06-24 07:17] LABS: HEMATOCRIT 47 % (33-45); HEMOGLOBIN 15.4 g/dL (11.5-14.8); LYMPHOCYTES # (AUTO) 0.4 /CMM (0.8-4.8); LYMPHOCYTES % (AUTO) 3.1 % (20.0-44.0); MEAN CORPUSCULAR HEMOGLOBIN 34 PG (26.0-33.0); MEAN CORPUSCULAR HGB CONC 33 g/dl (31.0-36.0); MEAN CORPUSCULAR VOLUME 105 fL (82-100); MONOCYTES # (AUTO) 0.7 /CMM (0.1-1.30); MONOCYTES % (AUTO) 5.4 % (2.0-12.0); NEUTROPHILS # (AUTO) 12.3 /CMM (1.8-8.9); NEUTROPHILS % (AUTO) 91.5 % (43.0-81.0); PLATELET COUNT (AUTO) 126 /CMM (150-450); RDW COEFFICIENT OF VARIATION 14.7 (11.5-15.0); WHITE BLOOD COUNT (AUTO) 13.4 K/uL (4.3-11.0)
--- NOTE | 2016-06-24 07:25 | NUR ---
RN MS INITIAL NOTES RECEIVED REPORT AND PT FROM PM NURSE, PT RESTING UPRIGHT IN BED, A&O X2-3 ON 4L NC SAT ABOVE 97%, NO SOB, LOONEY CATH DRAINING URINE VIA GRAVITY, RT HAND 22 G INTACT AND PATENT NO S.S OF INFILTRATION NOTED, ALL NEEDS MET, ALL SAFETY MEASURES INITIATED, SIDE RAILS X2, BED LOW AND LOCKED, CALL LIGHT WITHIN REACH.
[2016-06-24 07:47] LABS: CALCIUM, SERUM 8.3 mg/dL (8.5-10.1); MAGNESIUM 1.9 mg/dL (1.8-2.4); PHOSPHORUS 2.7 mg/dL (2.5-4.9); POTASSIUM 4.8 mmol/L (3.5-5.1)
[2016-06-24 08:00] VITALS: BP 123/72
[2016-06-24] MEDS: methylPREDNISolone SOD SUCC 125 MG/2ML VIAL IV SCH (08:19)
[2016-06-24] MEDS: PANTOPRAZOLE 40 MG VIAL IV SCH (08:19)
[2016-06-24] MEDS: LEVOTHYROXINE SODIUM 112 MCG TABLET PO SCH (08:19)
[2016-06-24] MEDS: DOCUSATE SODIUM 100 MG CAPSULE PO SCH ×2 (08:19→17:12)
[2016-06-24] MEDS: AMIODARONE HCL 200 MG TABLET PO SCH ×3 (08:20→17:13)
[2016-06-24] MEDS: DIGOXIN INJ 0.5 MG/2 ML AMPUL IV SCH (12:14)
[2016-06-24 16:00] VITALS: BP 121/72
--- NOTE | 2016-06-24 18:24 | NUR ---
RN MS ENDING NOTES PT RESTING IN BED, NO ACUTE CHANGES NOTED, ALL DUE MEDS GIVEN, BED BATH PROVIDED, ALL NEEDS MET, WILL ENDORSE TO PM NURSE.
--- NOTE | 2016-06-24 19:30 | NUR ---
MS RN INITIAL NOTE RECEIVED REPORT FROM SULMA BURGER. RECEIVED PATIENT SLEEPING IN BED, EASILY AROUSABLE TO NAME AND LIGHT TOUCH. PT IS A/A/O X3. LUNG SOUNDS DIMINISHED . BOWEL SOUNDS PRESENT. LOONEY INTACT AND DRAINING. IV SITE PATENT AND INTACT, FLUSHED WITH NS, FREE FROM ANY S/S OF INFILTRATION OF PHLEBITIS. CALL LIGHT LEFT WITHIN EASY REACH, REPOSITIONED FOR COMFORT. WILL CONTINUE TO CLOSELY MONITOR
[2016-06-24 20:00] VITALS: BP 140/85
[2016-06-24] MEDS ORDERED: SECONDARY IV SET 1 EA INFUS.SET MC ONE (21:21)
[2016-06-24] MEDS ORDERED: IV SET PRIMARY PUMP SET 1 EA INFUS.SET MC ONE (21:21)
[2016-06-24] MEDS: CEFTRIAXONE 1 G in IV D5W 50 ML IV SCH (21:38)
--- NOTE | 2016-06-24 22:00 | NUR ---
RN NOTES PATIENT HAS HISTORY OF COPD, RECEIVED ON NC @ 4LPM. PATIENT TITRATED TO 2L VIA NC, SATTING @ 92%, FREE FROM ANY S/S OF RESPIRATORY DISTRESS. PATIENT REFUSING NOCTURNAL BIPAP. WILL CONTINUE TO MONITOR
--- NOTE | 2016-06-25 | NUR ---
RN NOTES - NYSTATIN REFUSAL PATIENT REFUSED NYSTATIN ORAL SOLUTION. PATIENT TEACHING RENDERED REGARDING RISKS/BENEFITS X3. PATIENT VERBALIZES UNDERSTANDING, BUT STILL STRONGLY REFUSES. OFFERED MEDICATION X3. WILL CONTINUE TO CLOSELY MONITOR
[2016-06-25] MEDS: IPRATROPIUM NEB FS 0.5 MG/2.5 ML AMPUL.NEB NEB SCH ×6 (02:38→23:30)
[2016-06-25] MEDS: ALBUTEROL FS 2.5 MG/3 ML VIAL.NEB NEB SCH ×6 (02:38→23:30)
[2016-06-25 04:00] VITALS: BP 134/81
[2016-06-25] MEDS: NYSTATIN (PYXIS) 500,000 UNIT/5 ML ORAL.SUSP PO SCH ×4 (06:00→23:45)
--- NOTE | 2016-06-25 06:00 | NUR ---
RN NOTES - NYSTATIN REFUSAL PATIENT AGAIN REFUSES NYSTATIN ORAL. AGAIN EXPLAINED RISKS VS BENEFITS X3, PATIENT STILL STRONGLY REFUSING. WILL CONTINUE TO CLOSELY MONITOR
--- NOTE | 2016-06-25 06:13 | NUR ---
RN CLOSING NOTES PATIENT RESTING COMFORTABLY IN BED. PATIENT CONTINUES ON O2 VIA NC @ 2LPM, REFUSED BIPAP THROUGHOUT THE NIGHT, TOLERATING 2L NC WELL, FREE FROM ANY S/S OF RESPIRATORY DISTRESS. WILL ENDORSE THE PATIENT TO THE AM SHIFT NURSE FOR YOVANY
[2016-06-25 06:54] LABS: HEMATOCRIT 49 % (33-45); HEMOGLOBIN 15.6 g/dL (11.5-14.8); LYMPHOCYTES # (AUTO) 0.4 /CMM (0.8-4.8); LYMPHOCYTES % (AUTO) 2.7 % (20.0-44.0); MEAN CORPUSCULAR HEMOGLOBIN 34 PG (26.0-33.0); MEAN CORPUSCULAR HGB CONC 32 g/dl (31.0-36.0); MEAN CORPUSCULAR VOLUME 105 fL (82-100); MONOCYTES # (AUTO) 0.6 /CMM (0.1-1.30); MONOCYTES % (AUTO) 4.7 % (2.0-12.0); NEUTROPHILS # (AUTO) 12.1 /CMM (1.8-8.9); NEUTROPHILS % (AUTO) 92.6 % (43.0-81.0); PLATELET COUNT (AUTO) 129 /CMM (150-450); RDW COEFFICIENT OF VARIATION 14.5 (11.5-15.0); RED BLOOD CELL COUNT(AUTO) 4.61 MIL/uL (4.0-5.2); WHITE BLOOD COUNT (AUTO) 13.1 K/uL (4.3-11.0)
--- NOTE | 2016-06-25 07:30 | NUR ---
RN NOTES REPORT RECEIVED FROM NIGHT RN. PT STABLE AT THIS TIME. RESPONSIVE TO QUESTIONS. WILL CONTINUE PT CARE.
[2016-06-25 08:00] VITALS: BP 135/76
[2016-06-25] MEDS: LEVOTHYROXINE SODIUM 112 MCG TABLET PO SCH (08:03)
[2016-06-25] MEDS: DOCUSATE SODIUM 100 MG CAPSULE PO SCH ×2 (08:03→17:21)
[2016-06-25] MEDS: AMIODARONE HCL 200 MG TABLET PO SCH ×3 (08:07→17:25)
[2016-06-25] MEDS: methylPREDNISolone SOD SUCC 125 MG/2ML VIAL IV SCH (08:08)
[2016-06-25 08:13] LABS: CALCIUM, SERUM 8.3 mg/dL (8.5-10.1); MAGNESIUM 1.8 mg/dL (1.8-2.4); PHOSPHORUS 2.6 mg/dL (2.5-4.9); POTASSIUM 5.1 mmol/L (3.5-5.1)
[2016-06-25] MEDS: PANTOPRAZOLE 40 MG VIAL IV SCH (08:39)
--- NOTE | 2016-06-25 11:19 | NUR ---
RT MED NOTE PT AND FAMILY REFUSED MED AT THIS TIME. WANT THE PATIENT TO SLEEP. RT WILL ATTEMPT A BREATHING TX AT A LATER TIME. NO RESP DISTRESS NOTED, VITAL ARE STABLE
--- NOTE | 2016-06-25 12:05 | NUR ---
RN NOTES SPOKE WITH DR CUNNINGHAM RE DIGOXIN IV, PER MD GIVE DIGOXIN IV NO NEED TO PUT PT TO TELE STATUS. CHARGE SOON AWARE
[2016-06-25] MEDS: DIGOXIN INJ 0.5 MG/2 ML AMPUL IV SCH (14:19)
[2016-06-25 16:00] VITALS: BP_SYST 125; BP_SYST 135; BP_DIAS 77
--- NOTE | 2016-06-25 19:30 | NUR ---
MS RN INITIAL NOTE RECEIVED REPORT FROM MONIQUE BURGER. RECEIVED PATIENT SLEEPING IN BED, EASILY AROUSABLE TO NAME AND LIGHT TOUCH. PT IS A/A/O X3. LUNG SOUNDS DIMINISHED, ON O2 VIA NC @ 2LPM, TOLERATING WELL, FREE FROM ANY S/S OF RESPIRATORY DISTRESS. BOWEL SOUNDS PRESENT. LOONEY INTACT AND DRAINING TO GRAVITY. IV SITE PATENT AND INTACT, FLUSHED WITH NS, FREE FROM ANY S/S OF INFILTRATION OR PHLEBITIS. CALL LIGHT LEFT WITHIN EASY REACH, REPOSITIONED FOR COMFORT. WILL CONTINUE TO CLOSELY MONITOR
[2016-06-25 20:00] VITALS: BP 125/73
--- NOTE | 2016-06-25 21:12 | NUR ---
PT REFUSED BIPAP AT NIGHT. SPO2 95%, HR 85. NO RESPIRATORY DISTRESS AT THIS TIME . TAO OWEN NOTIFIED
--- NOTE | 2016-06-25 21:12 | NUR ---
RN NOTES MISCELLANEOUS ORDER TO CONTINUE NOCTURNAL BIPAP, HOWEVER, PATIENT REFUSING AT THIS TIME. PATIENT CURRENTLY ON O2 VIA NC @ 2LPM, TOLERATING WELL, SPO2 93% AT THIS TIME. PATIENT EDUCATED REGARDING RISKS/BENEFITS OF REFUSAL, WITH VERBALIZATION OF UNDERSTANDING. WILL MONITOR THE PATIENT CLOSELY Addendum: 06/25/16 at 2149 by ELIJAH MCCONNELL RN Amended: Links added.
[2016-06-25] MEDS: CEFTRIAXONE 1 G in IV D5W 50 ML IV SCH (21:39)
[2016-06-26] MEDS: ALBUTEROL FS 2.5 MG/3 ML VIAL.NEB NEB SCH ×5 (03:36→20:24)
[2016-06-26] MEDS: IPRATROPIUM NEB FS 0.5 MG/2.5 ML AMPUL.NEB NEB SCH ×5 (03:36→20:24)
[2016-06-26 04:00] VITALS: BP 126/83
[2016-06-26] MEDS: NYSTATIN (PYXIS) 500,000 UNIT/5 ML ORAL.SUSP PO SCH ×3 (06:00→17:51)
--- NOTE | 2016-06-26 06:13 | NUR ---
RN NOTES - NYSTATIN REFUSAL PATIENT AGAIN REFUSES NYSTATIN ORAL. AGAIN EXPLAINED RISKS VS BENEFITS X3, PATIENT STILL STRONGLY REFUSING. WILL CONTINUE TO CLOSELY MONITOR
--- NOTE | 2016-06-26 07:11 | NUR ---
RN CLOSING NOTES PATIENT RESTING COMFORTABLY IN BED, WILL ENDORSE PATIENT TO THE AM SHIFT NURSE FOR CONTINUITY OF CARE
[2016-06-26 08:00] VITALS: BP 127/81
[2016-06-26] MEDS: LEVOTHYROXINE SODIUM 112 MCG TABLET PO SCH (08:05)
--- NOTE | 2016-06-26 08:09 | NUR ---
RN ENTRY NOTE AT 0700AM PT AWAKE ALERT RESPONSIVE ON 2L NC O2 SATS 92% IV SITE L HAND SITE INTACT. CALL LIGH IN PLACE, BED LOW. IN NO RESP DISTRESS AT THIS TIME. WILL CONTINUE TO MONITOR CARE.
[2016-06-26] MEDS: AMIODARONE HCL 200 MG TABLET PO SCH ×3 (08:31→16:43)
[2016-06-26] MEDS: DOCUSATE SODIUM 100 MG CAPSULE PO SCH ×2 (08:31→16:41)
[2016-06-26] MEDS: methylPREDNISolone SOD SUCC 125 MG/2ML VIAL IV SCH (08:40)
--- NOTE | 2016-06-26 09:07 | NUR ---
RN AM NOTES RECEIVED PATIENT AWAKE IN STABLE CONDITION, SPO2 92% IS EXPECTED FOR MEDICAL CONDITION. PATIENT REFUSING NOCTURNAL BIPAP, RT CONSULTED WITH PATIENT THIS MORNING. WILL INFORM DOCTOR. WILL CONTINUE TO MONITOR.
[2016-06-26] MEDS: PANTOPRAZOLE 40 MG VIAL IV SCH (10:36)
[2016-06-26 12:00] VITALS: BP 127/81
[2016-06-26] MEDS: DIGOXIN INJ 0.5 MG/2 ML AMPUL IV SCH (12:24)
[2016-06-26 16:00] VITALS: BP 128/82
[2016-06-26 18:00] VITALS: BP 126/88
--- NOTE | 2016-06-26 19:17 | NUR ---
RN NOTE PT AWAKE ALERT RESPONSIVE ON 2L NC O2 SATS 92% IV SITE L HAND SITE INTACT. CALL LIGHT IN PLACE, BED LOW. IN NO RESP DISTRESS AT THIS TIME. WILL ENDORSE TO NIGHT NURSE. VS STABLE, AFEBRILE.
--- NOTE | 2016-06-26 19:40 | NUR ---
RN NOTES RECEIVED PT AWAKE ON BED. PALE LOOKING. ANXIETY NOTED BUT NO SOB. SATING 95% ON O2 2LPM VIA NC. AOX3 ABLE TO MAKE KNOWN NEEDS AND FEELINGS. IV SITE ON LEFT HAND G 22 SL INTACT AND PATENT. SAFETY AND COMFORT PROVIDED. WITH F.C DRAINED WITH YELLOW COLOR URINE VIA GRAVITY. KEPT PT CLEAN AND COMFORTABLE IN BED. ENCOURAGED TO REPOSITIONED BUT PT REFUSED, PER PT SHE IS COMFORTABLE. CALL LIGHT KEPT WITHIN EASY TO REACH WITH INSTRUCTION PROVIDED. WILL CONTINUE TO MONITOR.
[2016-06-26 20:00] VITALS: BP 130/75
[2016-06-26] MEDS: CEFTRIAXONE 1 G in IV D5W 50 ML IV SCH (21:14)
--- NOTE | 2016-06-26 22:00 | NUR ---
RN NOTES RECEIVED ENDORSEMENT FROM TAO DANGELO. RECEIVED PATIENT IN BED, AWAKE AND ALERT. PATIENT NOT IN ANY ACUTE DISTRESS. ON 2LPM OF O2 VIA NC, RESPIRATION IS EVEN AND UNLABORED. L HAND G22, FLUSHED AND PATENT, NO INFILTRATION NOTED. F/C INTACT AND DRAINING WELL WITH YELLOW URINE WITH SEDIMENTS NOTED. PATIENT'S NEEDS ANTICIPATED AND MET. SAFETY AND COMFORT ENSURED. BED IN LOW AND LOCKED POSITION. CALL LIGHT IN REACH. WILL MONITOR.
--- NOTE | 2016-06-26 23:00 | NUR ---
PT REFUSED BIPAP AT NIGHT. NO RESP DISTRESS NOTED. RN NOTIFIED
[2016-06-27] MEDS: IPRATROPIUM NEB FS 0.5 MG/2.5 ML AMPUL.NEB NEB SCH ×8 (00:01→23:44)
[2016-06-27] MEDS: ALBUTEROL FS 2.5 MG/3 ML VIAL.NEB NEB SCH ×8 (00:01→23:44)
--- NOTE | 2016-06-27 01:30 | NUR ---
RN NOTES PATIENT REFUSED NOCTURNAL BIPAP. PATIENT NOT IN ANY DISTRESS. PATIENT'S RESPIRATION IS EVEN AND UNLABORED, NO SOB NOTED. PATIENT SATURATING AT 96% ON 2LPM OF O2 VIA NC. NO ALTERATION IN MENTATION NOTED. PATIENT ALSO REFUSED NYSTATIN ORAL ZORAIDA'N ORDERED, EXPLAINED RISKS AND BENEFITS TO NO AVAIL. SAFETY AND COMFORT ENSURED. CALL LIGHT IN REACH.
[2016-06-27 04:00] VITALS: BP 121/73
[2016-06-27] MEDS ORDERED: IV NS 0.9% 250 ML IV ONE (05:13)
[2016-06-27] MEDS ORDERED: IV SET PRIMARY PUMP SET 1 EA INFUS.SET MC ONE (05:13)
[2016-06-27] MEDS: NYSTATIN (PYXIS) 500,000 UNIT/5 ML ORAL.SUSP PO SCH ×4 (06:00→17:00)
--- NOTE | 2016-06-27 07:04 | NUR ---
RN CLOSING NOTES PATIENT WITH NO ACUTE CHANGE IN CONDITION OBSERVED OVERNIGHT. PATIENT STABLE, NO DISTRESS. REMAINS ON 2LPM OF O2 VIA NC, RESPIRATION IS EVEN AND UNLABORED AT THIS TIME. ENCOURAGED INCREASE FLUID INTAKE TOLERATED, ASSISTED WITH FEEDING AND FLUID INTAKE AT ALL TIMES, ASPIRATION PRECAUTION OBSERVED AT ALL TIMES. F/C INTACT AND DRAINING WELL WITH SIMONE COLORED URINE. NEEDS ANTICIPATED AND MET. SAFETY AND COMFORT ENSURED. BED IN LOW AND LOCKED POSITION. CALL LIGHT IN REACH .WILL ENDORSE ACCORDINGLY FOR CONTINUITY OF CARE.
--- NOTE | 2016-06-27 07:35 | NUR ---
RN NOTES RECEIVED PATIENT IN BED, AWAKE AND ALERT. PATIENT NOT IN ANY ACUTE DISTRESS. ON 2LPM OF O2 VIA NC, RESPIRATIONS EVEN AND UNLABORED. L HAND G22, FLUSHED AND PATENT, NO INFILTRATION NOTED. F/C INTACT AND DRAINING WELL WITH YELLOW URINE WITH SEDIMENTS NOTED. PATIENT'S NEEDS ANTICIPATED AND MET. SAFETY AND COMFORT ENSURED. BED IN LOW AND LOCKED POSITION. CALL LIGHT IN REACH. WILL CONTINUE TO MONITOR.
[2016-06-27 08:00] VITALS: BP 122/71
[2016-06-27] MEDS: LEVOTHYROXINE SODIUM 112 MCG TABLET PO SCH (08:40)
[2016-06-27] MEDS: AMIODARONE HCL 200 MG TABLET PO SCH ×3 (08:41→16:47)
[2016-06-27] MEDS: PANTOPRAZOLE 40 MG VIAL IV SCH (08:41)
[2016-06-27] MEDS: methylPREDNISolone SOD SUCC 125 MG/2ML VIAL IV SCH (08:41)
[2016-06-27] MEDS: DOCUSATE SODIUM 100 MG CAPSULE PO SCH (08:42)
[2016-06-27 11:59] VITALS: BP 125/73
[2016-06-27 12:00] VITALS: BP 122/71
[2016-06-27] MEDS: DIGOXIN INJ 0.5 MG/2 ML AMPUL IV SCH (12:30)
--- NOTE | 2016-06-27 14:12 | NUR ---
pt. iv d/c ,per pt. it hurts refused reinsertion,dr. begum notified and change meds to po.
[2016-06-27] MEDS ORDERED: ONDANSETRON 4 MG TAB.RAPDIS PO PRN (14:30)
[2016-06-27] MEDS: DIGOXIN 0.125 MG TABLET PO SCH (14:46)
[2016-06-27 16:00] VITALS: BP 108/73
[2016-06-27] MEDS: DOCUSATE SODIUM LIQ 100 MG/10 ML UDC PO SCH (16:44)
--- NOTE | 2016-06-27 18:56 | NUR ---
RN NOTES PATIENT IN BED, AWAKE AND ALERT. PATIENT NOT IN ANY ACUTE DISTRESS. ON 2LPM OF O2 VIA NC, RESPIRATIONS EVEN AND UNLABORED. NO IV ACCESS AT THIS TIME MD AWARE, MEDICATIONS CHANGED TO PO F/C INTACT AND DRAINING WELL WITH YELLOW URINE WITH SEDIMENTS NOTED. PATIENT'S NEEDS ANTICIPATED AND MET. SAFETY AND COMFORT ENSURED. BED IN LOW AND LOCKED POSITION. CALL LIGHT IN REACH. WILL CONTINUE TO MONITOR AND ENDORSE TO NEXT SHIFT FOR CONTINUITY OF CARE.
--- NOTE | 2016-06-27 19:30 | NUR ---
MS RN INITIAL NOTE RECEIVED REPORT ARIC BURGER. PT IN BED. A/A/O X1. PT IS MORE CONFUSED. SHE IS STATING "I AM 82 YEARS OLD, STOP HIDING ME" "I NEED TO TALK TO MY COMMUNITY PROGRAM ASSISTANT" "NO ONE UNDERSTANDS ME" LUNG SOUNDS MINIMAL RHONCHI. BOWEL SOUNDS PRESENT. IV PATENT AND INTACT. PULSES PRESENT IN ALL EXTREMITIES. BED IN LOW LOCKED POSITION. CALL LIGHT WITHIN REACH.
[2016-06-27 20:00] VITALS: BP 137/78
[2016-06-28] MEDS: NYSTATIN (PYXIS) 500,000 UNIT/5 ML ORAL.SUSP PO SCH ×4 (00:05→17:48)
[2016-06-28 04:00] VITALS: BP 125/70
[2016-06-28] MEDS: ALBUTEROL FS 2.5 MG/3 ML VIAL.NEB NEB SCH ×6 (04:38→23:11)
[2016-06-28] MEDS: IPRATROPIUM NEB FS 0.5 MG/2.5 ML AMPUL.NEB NEB SCH ×6 (04:38→23:11)
[2016-06-28 06:19] LABS: BASOPHILS % (AUTO) 0.1 % (0.0-2.0); EOSINOPHILS # (AUTO) 0.1 /CMM (0.0-0.7); EOSINOPHILS % (AUTO) 0.5 % (0.0-6.0); HEMATOCRIT 45 % (33-45); HEMOGLOBIN 14.8 g/dL (11.5-14.8); LYMPHOCYTES # (AUTO) 0.7 /CMM (0.8-4.8); LYMPHOCYTES % (AUTO) 7.6 % (20.0-44.0); MEAN CORPUSCULAR HEMOGLOBIN 35 PG (26.0-33.0); MEAN CORPUSCULAR HGB CONC 33 g/dl (31.0-36.0); MEAN CORPUSCULAR VOLUME 104 fL (82-100); MONOCYTES # (AUTO) 0.6 /CMM (0.1-1.30); MONOCYTES % (AUTO) 6.1 % (2.0-12.0); NEUTROPHILS # (AUTO) 8.4 /CMM (1.8-8.9); NEUTROPHILS % (AUTO) 85.7 % (43.0-81.0); PLATELET COUNT (AUTO) 133 /CMM (150-450); RDW COEFFICIENT OF VARIATION 13.7 (11.5-15.0); RED BLOOD CELL COUNT(AUTO) 4.28 MIL/uL (4.0-5.2); WHITE BLOOD COUNT (AUTO) 9.8 K/uL (4.3-11.0)
[2016-06-28 06:31] LABS: INR 1.52 (0.87-1.13); PROTHROMBIN TIME 16.7 SECS (9.5-12.7)
--- NOTE | 2016-06-28 07:30 | NUR ---
ms rn initial notes Received patient in bed, awake, head of bed elevated, no SOB or distress noted, on 02 @ 3lpm via NC and tolerated well. No IV access line and MD aware as endorsed by clinical trial data manager RN. Alert and oriented x 1, with confusion. Fernandes in place attached to drainage bag. Kept patient clean and comfortable in bed, call light with in patient reach, will continue to monitor accordingly.
[2016-06-28] MEDS: PANTOPRAZOLE 40 MG TABLET.DR PO SCH (07:47)
[2016-06-28] MEDS: LEVOTHYROXINE SODIUM 112 MCG TABLET PO SCH (07:47)
[2016-06-28 08:00] VITALS: BP 117/60
[2016-06-28] MEDS: DOCUSATE SODIUM LIQ 100 MG/10 ML UDC PO SCH ×2 (08:59→16:27)
[2016-06-28] MEDS: AMIODARONE HCL 200 MG TABLET PO SCH ×3 (08:59→16:26)
[2016-06-28] MEDS: predniSONE 20 MG TABLET PO SCH (08:59)
[2016-06-28] MEDS: DIGOXIN 0.125 MG TABLET PO SCH (12:18)
[2016-06-28 16:00] VITALS: BP 124/56
--- NOTE | 2016-06-28 19:47 | NUR ---
ms rn closing notes All needs provided, attended, and anticipated. Fernandes output of 500ml. Kept patient clean and comfortable in bed, call light with in patient reach, will continue to monitor accordingly. endorsed to next shift RN to continue care.
[2016-06-28 20:00] VITALS: BP 133/81
--- NOTE | 2016-06-28 23:13 | NUR ---
PT REFUSED BIPAP. PT STABLE. 95% SATURATION. 80 HR. CHARGE NURSE AWARE. Addendum: 06/28/16 at 2315 by SEDA PRESLEY RT Amended: Links added.
[2016-06-29] MEDS: NYSTATIN (PYXIS) 500,000 UNIT/5 ML ORAL.SUSP PO SCH ×4 (01:11→17:05)
[2016-06-29] MEDS: IPRATROPIUM NEB FS 0.5 MG/2.5 ML AMPUL.NEB NEB SCH ×6 (03:20→23:05)
[2016-06-29] MEDS: ALBUTEROL FS 2.5 MG/3 ML VIAL.NEB NEB SCH ×6 (03:20→23:05)
[2016-06-29 04:00] VITALS: BP 108/67
--- NOTE | 2016-06-29 06:46 | NUR ---
RN CLOSING NOTES PATIENT IN BED. ALERT ET ORIENTEDX1. RESPIRATION EVEN ET UNLABORED. WITH NO ACUTE CHANGE IN CONDITION PATIENT STABLE, NO DISTRESS. REMAINS ON 2LPM OF O2 VIA NC, ASPIRATION PRECAUTION OBSERVED AT ALL TIMES. F/C INTACT AND DRAINING WELL WITH SIMONE COLORED URINE. .. ADMINISTERED ALL MEDS ORDERED. ALL NEEDS ANTICIPATED AND MET. SAFETY AND COMFORT ENSURED. BED IN LOW AND LOCKED POSITION. CALL LIGHT IN REACH .WILL ENDORSE ACCORDINGLY FOR CONTINUITY OF CARE.
--- NOTE | 2016-06-29 07:20 | NUR ---
RN INTIAL NOTE RECEIVED PT FRO PM NURSE. PT A/OX 2-3, BELARUSIAN SPEAKING . REFUSED BIPAP AND REFUSED IV INSERTION. ALL SAFETY MEASURES IN PLACE. PT CLEAN WARM AND DRY. PT NOT ABLE TO VERBALIZE PAIN. WILL CONTINUE TO MONITOR CLOSELY.
[2016-06-29 08:00] VITALS: BP 118/71
[2016-06-29] MEDS: PANTOPRAZOLE 40 MG TABLET.DR PO SCH (08:26)
[2016-06-29] MEDS: predniSONE 20 MG TABLET PO SCH (08:26)
[2016-06-29] MEDS: LEVOTHYROXINE SODIUM 112 MCG TABLET PO SCH (08:27)
[2016-06-29] MEDS: AMIODARONE HCL 200 MG TABLET PO SCH ×3 (08:27→17:05)
[2016-06-29] MEDS: DOCUSATE SODIUM LIQ 100 MG/10 ML UDC PO SCH ×2 (08:28→17:05)
[2016-06-29 09:48] VITALS: BP 118/71
[2016-06-29] MEDS: DIGOXIN 0.125 MG TABLET PO SCH (12:32)
[2016-06-29 16:00] VITALS: BP_SYST 105; BP_SYST 118; BP_DIAS 66; BP_DIAS 71
--- NOTE | 2016-06-29 19:25 | NUR ---
RN CLOSING NOTE PT A/OX 2-3, ESTONIAN SPEAKING . REFUSED BIPAP AND REFUSED IV INSERTION. ALL MEDICATIONS GIVEN ALL ORDERS CARRIED OUT. ALL SAFETY MEASURES IN PLACE. PT CLEAN WARM AND DRY. REPOSITIONED PT FOR COMFORT AND SAFETY. REPORT GIVEN TO PM NURSE FOR YOVANY.
--- NOTE | 2016-06-29 19:30 | NUR ---
MS RN INITIAL NOTES RECEIVED PATIENT AWAKE, A/OX2, DENIES SOB, DENIES PAIN OR DISCOMFORT. PATIENT EXPRESSED TO BE LEFT ALONE. EXPLAINED TO PATIENT THE NEED FOR TURNING AND REPOSITIONING AND THE NEED FOR TAKING DUE MEDICATIONS. PATIENT STILL EXPRESSED STRONGLY TO BE LEFT ALONE. NO RESPIRATORY DISTRESS NOTED WITH 3LPMO2 VIA NC SPO2 93%. SKIN WARM AND DRY TO TOUCH. NOTED WITH EXPIRATORY WHEEZES. SIDE RAILS UP AND LOCKED. BED KEPT AT LOWEST POSITION. CALL LIGHT KEPT WITHIN EASY REACH . WILL CONTINUE TO MONITOR.
[2016-06-29 20:00] VITALS: BP 135/80
--- NOTE | 2016-06-29 21:00 | NUR ---
PT REFUSED BIPAP AT NIGHT. SPO2 94%, TAO MUNOZ NOTIFIED
--- NOTE | 2016-06-29 21:00 | NUR ---
ms rn notes patient refused bipap despite rt explanation of benefits. patient in no respiratory distress. spo2 93% on 3lpm via nc. denies sob. will continue to monitor.
--- NOTE | 2016-06-30 00:20 | NUR ---
RN NOTES PT REFUSED NYSTATIN, EXPLAINED THE RISK AND BENEFITS OF THE MEDICATIONS, PT STILL REFUSED.
[2016-06-30] MEDS: IPRATROPIUM NEB FS 0.5 MG/2.5 ML AMPUL.NEB NEB SCH ×4 (03:29→14:42)
[2016-06-30] MEDS: ALBUTEROL FS 2.5 MG/3 ML VIAL.NEB NEB SCH ×4 (03:29→14:42)
[2016-06-30 04:00] VITALS: BP 135/87
[2016-06-30 05:47] LABS: EOSINOPHILS % (AUTO) 0.1 % (0.0-6.0); HEMATOCRIT 43 % (33-45); LYMPHOCYTES # (AUTO) 0.8 /CMM (0.8-4.8); MEAN CORPUSCULAR HEMOGLOBIN 34 PG (26.0-33.0); MEAN CORPUSCULAR HGB CONC 33 g/dl (31.0-36.0); MEAN CORPUSCULAR VOLUME 104 fL (82-100); MONOCYTES # (AUTO) 0.6 /CMM (0.1-1.30); MONOCYTES % (AUTO) 4.7 % (2.0-12.0); NEUTROPHILS # (AUTO) 10.5 /CMM (1.8-8.9); NEUTROPHILS % (AUTO) 88.2 % (43.0-81.0); PLATELET COUNT (AUTO) 135 /CMM (150-450); RDW COEFFICIENT OF VARIATION 13.8 (11.5-15.0); RED BLOOD CELL COUNT(AUTO) 4.11 MIL/uL (4.0-5.2); WHITE BLOOD COUNT (AUTO) 11.9 K/uL (4.3-11.0)
[2016-06-30] MEDS: NYSTATIN (PYXIS) 500,000 UNIT/5 ML ORAL.SUSP PO SCH ×5 (06:00→17:19)
--- NOTE | 2016-06-30 06:00 | NUR ---
RN NOTES PATIENT REFUSED NYSTATIN, EXPLAINED THE RISK AND BENEFITS OF THE MEDICATIONS, PT STILL REFUSED.
[2016-06-30 06:27] LABS: CALCIUM, SERUM 7.9 mg/dL (8.5-10.1); CREATININE 0.9 mg/dL (0.6-1.3); MAGNESIUM 1.8 mg/dL (1.8-2.4); PHOSPHORUS 2.1 mg/dL (2.5-4.9); POTASSIUM 4.1 mmol/L (3.5-5.1)
[2016-06-30] MEDS: LEVOTHYROXINE SODIUM 112 MCG TABLET PO SCH (06:40)
[2016-06-30] MEDS: PANTOPRAZOLE 40 MG TABLET.DR PO SCH (06:40)
--- NOTE | 2016-06-30 07:10 | NUR ---
RN INITIAL NOTES RECEIVED PT IN BED, AWAKE, ABLE TO MAKE NEEDS KNOWN, PT IS ON 2L NC, SATING 94%, NO S/S OF RESP. DISTRESS OR SOB NOTED AT THIS TIME, NO C/O CHEST PAIN OR DISCOMFORT AT THIS TIME, PT IS NOTED WITH SKIN ISSUES, PT HAS NO IV ACCESS, MD AWARE, EXPLAINED RISKS AND BENEFITS, PT STILL REFUSES, ALL SAFETY MEASURES IN PLACE AT ALL TIMES, CALL LIGHT WITHIN EASY REACH, WILL MONITOR PT CLOSELY FOR CHANGES
--- NOTE | 2016-06-30 07:30 | NUR ---
RN CLOSING NOTES PT IS IN BED, HOB OF ELEVATED 35 DEGREES ANGLE, A/O X3 MOUTH WORDS. PT NO SIGN AND SYMPTOMS OF ANY ACUTE DISTRESS NOTED.ALL MEDS GIVEN AND PT TOLERATED IT WELL. PT KEPT CLEAN AND DRY AND TURNED REPOSITIONED Q2 HOURS. ALL NEEDS MET, SAFETY MEASURES MAINTAINED, CALL LIGHTS WITHIN REACHED AND ENDORSED TO THE NIGHT NURSE.
[2016-06-30 08:00] VITALS: BP 126/78
[2016-06-30] MEDS: DOCUSATE SODIUM LIQ 100 MG/10 ML UDC PO SCH ×3 (09:00→17:00)
[2016-06-30] MEDS ORDERED: predniSONE 20 MG TABLET PO SCH (09:00)
[2016-06-30] MEDS: AMIODARONE HCL 200 MG TABLET PO SCH ×3 (09:46→17:00)
[2016-06-30] MEDS ORDERED: ALBUT2 NEB (11:08)
[2016-06-30] MEDS ORDERED: PRED20TA PO (11:08)
[2016-06-30] MEDS ORDERED: AMIO200T7 PO (11:08)
[2016-06-30] MEDS ORDERED: Digoxin PO (11:08)
[2016-06-30] MEDS ORDERED: K PHOS NEUTRAL 250 MG TABLET PO ONE (11:30)
[2016-06-30] MEDS: DIGOXIN 0.125 MG TABLET PO SCH (12:37)
[2016-06-30 16:00] VITALS: BP 134/79
--- NOTE | 2016-06-30 16:03 | NUR ---
LOGISTICS LOSS PREVENTION MANAGER NOTES RECEIVED ORDERS FOR PT TO BE DISCHARGE, DR. MON SPOKE TO PT AND FAMILY AT BEDSIDE, ALL MEDICATIONS GIVEN, ALL MD ORDERS CARRIED OUT, LOONEY REMOVED PER REQUEST, REPORT GIVEN TO TAO MCMILLAN @ [facility] [phone]. PHOTOS TAKEN AND IN CHART, BELONGINGS LIST SIGNED AND BELONGINGS WITH FAMILY, ALL INSTRUCTIONS GIVEN, ALL PAPERWORK COMPLETED AND GIVEN, ALL QUESTIONS AND CONCERNS ANSWERED, PT KEPT CLEAN AND DRY, ALL TREATMENTS CARRIED OUT, REPORT WILL BE BE GIVEN TO EMT
[2016-06-30 17:00] VITALS: BP 134/79
--- NOTE | 2016-06-30 18:21 | NUR ---
RN CLOSING NOTES PT REMAINED STABLE DURING SHIFT, ALL MD ORDERS CARRIED OUT, PT KEPT CLEAN AND DRY, ALL SAFETY MEASURES IN PLACE AT ALL TIMES, CALL LIGHT WITHIN EASY REACH, WILL GIVE PM RN FOR YOVANY
== END 2016-06-30 19:15 | DRG 853 ==
LOC: ER 00:42 → ICU 04:09 → TELE-TD 06-19 21:25 → MEDSG1 06-22 10:16
PROVIDERS: ADMIT Family Medicine; ATTEND Family Medicine
PROC: 5A1945Z Respiratory Ventilation, 24-96 Consecutive Hours (ICD-10-PCS; principal; 2016-06-12)
PROC: 30233N1 Transfusion of Nonautologous Red Blood Cells into Peripheral Vein, Percutaneous Approach (ICD-10-PCS; principal; 2016-06-12)
PROC: 0BH17EZ Insertion of Endotracheal Airway into Trachea, Via Natural or Artificial Opening (ICD-10-PCS; principal; 2016-06-12)
PROC: 0DS68ZZ Reposition Stomach, Via Natural or Artificial Opening Endoscopic (ICD-10-PCS; 2016-06-13)
PROC: 0DJ08ZZ Inspection of Upper Intestinal Tract, Via Natural or Artificial Opening Endoscopic (ICD-10-PCS; 2016-06-13)
PROC: 5A2204Z Restoration of Cardiac Rhythm, Single (ICD-10-PCS; 2016-06-13)
PROC: 5A1945Z Respiratory Ventilation, 24-96 Consecutive Hours (ICD-10-PCS; 2016-06-16)
DX: A41.9 Sepsis, unspecified organism (principal); G93.41 Metabolic encephalopathy; J96.02 Acute respiratory failure with hypercapnia; E43 Unspecified severe protein-calorie malnutrition; I21.4 Non-ST elevation (NSTEMI) myocardial infarction; I50.33 Acute on chronic diastolic (congestive) heart failure; J96.01 Acute respiratory failure with hypoxia; E87.2 Acidosis; D68.9 Coagulation defect, unspecified; J44.1 Chronic obstructive pulmonary disease with (acute) exacerbation; I48.92 Unspecified atrial flutter; K44.0 Diaphragmatic hernia with obstruction, without gangrene; Z99.11 Dependence on respirator [ventilator] status; E87.1 Hypo-osmolality and hyponatremia; E88.09 Other disorders of plasma-protein metabolism, not elsewhere classified; I25.10 Atherosclerotic heart disease of native coronary artery without angina pectoris; W06.XXXA Fall from bed, initial encounter; Y92.003 Bedroom of unspecified non-institutional (private) residence as the place of occurrence of the external cause; E03.9 Hypothyroidism, unspecified; E66.01 Morbid (severe) obesity due to excess calories; Z79.01 Long term (current) use of anticoagulants; E87.5 Hyperkalemia; E86.9 Volume depletion, unspecified; Z79.890 Hormone replacement therapy; Z68.33 Body mass index [BMI] 33.0-33.9, adult; R59.0 Localized enlarged lymph nodes; I48.2 Chronic atrial fibrillation; B37.9 Candidiasis, unspecified; R49.0 Dysphonia
CPT/HCPCS: 31720; 36415; 36600; 70450-TC; 71010-TC; 71260-TC; 72125-TC; 80048-TC; 80053-TC; 80061-TC; 80076-TC; 80162-TC; 81000-TC; 82306; 82533; 82570-TC; 82803-TC; 82962-TC; 83605-TC; 83735-TC; 83880; 83935-TC; 84100-TC; 84300-TC; 84439-TC; 84443-TC; 84484-TC; 85025-TC; 85610-TC; 85730-TC; 86850-TC; 87040-TC; 87081-TC; 93307-TC; 94002-TC; 94003-TC; 94760-TC; 94799-TC; 97001-TC; 97110-TC; 97112-TC; 97530-TC; 99082-TC; A4216; A4606; A6403; A9563; C9113; J0282; J0330; J0456; J0696; J1120; J1160; J1450; J1956; J2704; J2930; J3010; J3475; J3490; J7030; J7050; J7060; P9017-BL; Q9966; Z7610